=== PATIENT | female | born 1935 | race Caucasian/White ===

== ENCOUNTER 2020-07-18 09:05 | Emergency (ER) | payer MEDICARE, OTHER, SELFPAY ==
--- NOTE | 2020-07-18 | ECG_ITS ---
Test Reason : CP Blood Pressure : / mmHG Vent. Rate : 069 BPM Atrial Rate : 069 BPM P-R Int : 158 ms QRS Dur : 070 ms QT Int : 422 ms P-R-T Axes : 071 039 063 degrees QTc Int : 452 ms Normal sinus rhythm Normal ECG When compared with ECG of 24-NOV-2007 06:58, ST no longer depressed in Inferior leads Referred By: Generic ED Physician Electronically Signed By:Rambo Carver
[2020-07-18 09:11] VITALS: BP 181/80; PULSE 70; RESP 16; TEMP 36.5; O2SAT 98; BMI 25.0
--- NOTE | 2020-07-18 09:41 | XR_ITS ---
EXAMINATION: XR CHEST CLINICAL INFORMATION: Chest pain COMPARISON: June 07, 2006 TECHNIQUE: 2 views of the chest were obtained. FINDINGS: There is apical pleural thickening seen bilaterally. No acute parenchymal disease, pneumothorax, or pleural effusion. Heart normal size. No evidence of pulmonary edema. 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 XR/XR chest 2V IMPRESSION: No acute parenchymal disease.
--- NOTE | 2020-07-18 10:26 | ED.CHESTPAIN ---
HPI - Chest Pain General Chief Complaint: Chest Pain Stated Complaint: chest pain Time Seen by Provider: 07/18/20 09:32 Source: patient and EMS Mode of arrival: EMS Limitations: other (History of dementia) History of Present Illness HPI narrative: 84yoF c PMHx of Dementia who is at baseline per Nurse at [facility], HTN, breast cancer, hypothyroidism, anxiety, insomnia, arthritis, and osteopenia who is currently residing at assisted living facility stated to EMS that she was having burning sensation in her chest. Patient is a poor historian due to her history of dementia. When she arrived here in the ER she reports she does not have any chest pain and denies any other symptoms at this time and is very confused and requesting to leave. Related Data Allergies Allergy/AdvReac Type Severity Reaction Status Date / Time No Known Allergies Allergy Unverified 03/25/20 14:42 Review of Systems Review of Systems: Yes Unobtainable due to mental condition (Baseline dementia) [facility] Past Medical History Source: other Social History Social History Advance Directives: No Advance Directives Information Provided: No Physical Exam Vital Signs: Vital Signs: Last Vital Signs Temp 97.7 F 07/18/20 09:11 Pulse 70 07/18/20 09:11 Resp 16 07/18/20 09:11 BP 181/80 H 07/18/20 09:11 Pulse Ox 98 07/18/20 09:11 Body Mass Index 25.0 vital signs have been reviewed as normal and appeared to be correct. Blood pressure hypertensive. Heart rate normal. Respiration rate normal. Temperature normal. Oxygen saturation normal. Appearance: Alert. Confused due to history of dementia. No acute distress. Head: Normal external exam. Normocephalic. Atraumatic. Eyes: PERRLA. EOMI. Conjunctiva and sclera normal. Eyelids normal. ENT: Pharynx normal. Uvula midline. Moist mucous membranes. Neck: Normal inspection. Neck supple. FROM. No adenopathy. Thyroid Normal. No meningeal signs. No neck mass noted. CVS: Normal heart rate and rhythm. Heart sound normal. No murmurs noted. Pulses normal throughout. Respiratory: No respiratory distress. Painless inspiration. Breath sounds normal. No wheezes/rales/rhonchi noted. Chest nontender. No accessory muscle usage noted or decreased air movement noted. Abdomen: Soft and nontender. Bowel sounds normal in all 4 quadrants. No distention noted. No organomegaly noted. No visible injury noted. Back: No CVA tenderness. Full range of motion noted. Skin: Skin warm and dry. Normal skin color. Normal skin turgor. No rashes/lesions/lacerations noted. Extremities: + b/l pitting lower extremity edema. No calf tenderness. Extremities exhibit normal range of motion. Extremities nontender. Neuro: Confused due to history of dementia. No motor deficit. No sensory deficit. Reflexes normal. Course Course Course Narrative: 9:41am - 84yoF c PMHx of Dementia who is at baseline per Nurse at [facility], HTN, breast cancer, hypothyroidism, anxiety, insomnia, arthritis, and osteopenia who is currently residing at assisted living facility stated to EMS that she was having burning sensation in her chest. Patient at this time denies any complaints or concerns reports she never had any chest pain although due to her history of dementia so will still do a workup. Otherwise not in any acute distress. Attempted to call the [facility] assisted-living awaiting for the nurse to call back to get more information. - Concern for ACS - Plan: Labs, CXR, EKG then re-evaluate Reevaluation(s) Reevaluation #1: - all labs within normal limits including troponin and D-dimer. EKG normal sinus rhythm no acute ischemic changes noted. Chest x-ray within normal limits no acute processes noted. UA has +1 leukocytes although negative nitrates and patient denies any symptoms at this time therefore will not treat and await urine culture. Patient negative for COVID/flu/RSV. Will DC home with instructions to return if any new or worsening symptoms to follow with primary care provider. Patient and Nurse at [facility] understand and agree with plan. MDM - Chest Pain Medical Records Data Attestation: I reviewed the patient's medical records. Lab Data Attestation: I reviewed the patient's lab results. Result diagrams: 07/18/20 10:22 07/18/20 10:22 Labs: Lab Results 07/18/20 07/18/20 07/18/20 Range/Units 10:22 10:22 10:22 WBC 5.1 (4.8-10.8) X10*3/uL RBC 4.47 (4.20-5.50) X10*6/uL Hgb 13.7 (12.0-16.0) g/dl Hct 42.1 (37-47) % MCV 94.2 (80-98) fL MCH 30.6 (27.0-33.0) pg MCHC 32.5 (31.0-35.0) g/dl RDW 13.2 (11.0-16.0) % Plt Count 224 (160-400) X10*3/uL MPV 10.2 (9.4-12.3) fL Immature Gran % (Auto) 0.2 (0.0-0.4) % Neut % (Auto) 69.7 (45-73) % Lymph % (Auto) 15.0 L (20-40) % Cidra % (Auto) 10.0 (2-11) % Eos % (Auto) 4.3 H (0-4) % Baso % (Auto) 0.8 (0-2) % Lymph # (Auto) 0.8 L (1.2-4.9) X10*3/uL Cidra # (Auto) 0.5 (0.1-1.2) X10*3/uL Eos # (Auto) 0.2 (0.0-0.4) X10*3/uL Baso # (Auto) 0.0 (0.0-0.2) X10*3/uL Abs Immat Gran (auto) 0.01 (0.00-0.03) X10*3/uL Absolute Neuts (auto) 3.6 (2.0-8.3) X10*3/uL Absolute Nucleated RBC 0.000 (0.0-0.012) X10*3/uL Nucleated RBC % (auto) 0.0 (0.0-0.2) /100WBC PT 11.2 (10.8-13.0) SEC INR 0.9 (0.9-1.1) Sodium 142 (135-145) mmol/L Potassium 4.0 (3.3-5.1) mmol/l Chloride 105 (96-108) mmol/L Carbon Dioxide 28 (22-29) mmol/L Anion Gap 13 (12-20) BUN 20 H (9-16) mg/dL Creatinine 0.98 (0.5-1.4) mg/dL Estim Creat Clear Calc 39.8 Estimated GFR 54 Random Glucose 101 (60-115) mg/dL Calcium 8.9 (8.4-10.2) mg/dL Magnesium 2.4 (1.6-2.6) mg/dL Total Bilirubin 0.3 (0.0-1.0) mg/dL Direct Bilirubin 0.2 (0.0-0.5) mg/dL AST 15 (5-31) U/L ALT 15 (0-31) U/L Alkaline Phosphatase 72 (39-117) U/L Troponin I High Sens (<3.5-17.0) ng/L B-Natriuretic Peptide (<100) pg/mL Total Protein 6.7 (6.5-8.0) g/dL Albumin 4.2 (3.5-5.0) g/dL Urine Color Urine Appearance Urine pH (5.0-8.0) Ur Specific Driggs (1.005-1.025) Urine Protein (NEG-TRACE) MG/DL Urine Glucose (UA) (NEG) MG/DL Urine Ketones (NEG) MG/DL Urine Blood (NEG) Urine Nitrite (NEG) Ur Leukocyte Esterase (NEG) Urine RBC (0) /HPF Urine WBC (0-4) /HPF Ur Squamous Epith Cells /LPF Urine Bacteria /LPF Coronavirus (PCR) (Negative) Influenza Type A (PCR) (Negative) Influenza Type B (PCR) (Negative) RSV RNA Qual (PCR) (Negative) 07/18/20 07/18/20 07/18/20 Range/Units 10:22 10:22 11:06 WBC (4.8-10.8) X10*3/uL RBC (4.20-5.50) X10*6/uL Hgb (12.0-16.0) g/dl Hct (37-47) % MCV (80-98) fL MCH (27.0-33.0) pg MCHC (31.0-35.0) g/dl RDW (11.0-16.0) % Plt Count (160-400) X10*3/uL MPV (9.4-12.3) fL Immature Gran % (Auto) (0.0-0.4) % Neut % (Auto) (45-73) % Lymph % (Auto) (20-40) % Cidra % (Auto) (2-11) % Eos % (Auto) (0-4) % Baso % (Auto) (0-2) % Lymph # (Auto) (1.2-4.9) X10*3/uL [place] # (Auto) (0.1-1.2) X10*3/uL Eos # (Auto) (0.0-0.4) X10*3/uL Baso # (Auto) (0.0-0.2) X10*3/uL Abs Immat Gran (auto) (0.00-0.03) X10*3/uL Absolute Neuts (auto) (2.0-8.3) X10*3/uL Absolute Nucleated RBC (0.0-0.012) X10*3/uL Nucleated RBC % (auto) (0.0-0.2) /100WBC PT (10.8-13.0) SEC INR (0.9-1.1) Sodium (135-145) mmol/L Potassium (3.3-5.1) mmol/l Chloride (96-108) mmol/L Carbon Dioxide (22-29) mmol/L Anion Gap (12-20) BUN (9-16) mg/dL Creatinine (0.5-1.4) mg/dL Estim Creat Clear Calc Estimated GFR Random Glucose (60-115) mg/dL Calcium (8.4-10.2) mg/dL Magnesium (1.6-2.6) mg/dL Total Bilirubin (0.0-1.0) mg/dL Direct Bilirubin (0.0-0.5) mg/dL AST (5-31) U/L ALT (0-31) U/L Alkaline Phosphatase (39-117) U/L Troponin I High Sens < 3.5 (<3.5-17.0) ng/L B-Natriuretic Peptide 51 (<100) pg/mL Total Protein (6.5-8.0) g/dL Albumin (3.5-5.0) g/dL Urine Color YELLOW Urine Appearance CLEAR Urine pH 5.5 (5.0-8.0) Ur Specific Driggs 1.015 (1.005-1.025) Urine Protein NEG (NEG-TRACE) MG/DL Urine Glucose (UA) NEG (NEG) MG/DL Urine Ketones NEG (NEG) MG/DL Urine Blood NEG (NEG) Urine Nitrite NEG (NEG) Ur Leukocyte Esterase 1+ H (NEG) Urine RBC 0-2 (0) /HPF Urine WBC 5-9 H (0-4) /HPF Ur Squamous Epith Cells TRACE /LPF Urine Bacteria NONE /LPF Coronavirus (PCR) NEGATIVE (Negative) Influenza Type A (PCR) NEGATIVE (Negative) Influenza Type B (PCR) NEGATIVE (Negative) RSV RNA Qual (PCR) NEGATIVE (Negative) Imaging Data Chest x-ray: Attestation: I personally reviewed and interpreted this imaging study as follows: Radiologist's impression: FINDINGS: There is apical pleural thickening seen bilaterally. No acute parenchymal disease, pneumothorax, or pleural effusion. Heart normal size. No evidence of pulmonary edema. 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 XR/XR chest 2V IMPRESSION: No acute parenchymal disease. ECG Data ECG #1: Attestation: I personally reviewed and interpreted this ECG as follows: ECG interpretation date: 07/18/20 ECG interpretation time: 09:22 Interpretation: Normal sinus rhythm with a ventricular rate of 69 with normal ND interval normal QRS duration normal QT/QTC interval. No acute ischemic changes noted. Similar when compared to prior EKG on 11/24/2007. Discharge Plan Discharge Clinical Impression: Atypical chest pain Patient Disposition: Home, Self-Care Instructions: Chest Pain (ED) Referrals: Physician,Unknown [Primary Care Provider] - 2 days (your pcp) Print Language: Togolese
[2020-07-18 10:29] LABS: Basophils Percent Auto 0.8 % (0-2); Eosinophils Absolute Auto 0.2 X10*3/uL (0.0-0.4); Eosinophils Percent Auto 4.3 % (0-4); Hematocrit 42.1 % (37-47); Hemoglobin 13.7 g/dl (12.0-16.0); Imm Gran Abs Auto 0.01 X10*3/uL (0.00-0.03); Imm Gran Pct Auto 0.2 % (0.0-0.4); Lymphocytes Absolute Auto 0.8 X10*3/uL (1.2-4.9); MANUAL DIFF FLAG NO; Mean Corpuscular HGB Conc 32.5 g/dl (31.0-35.0); Mean Corpuscular Hemoglobin 30.6 pg (27.0-33.0); Mean Corpuscular Volume 94.2 fL (80-98); Mean Platelet Volume 10.2 fL (9.4-12.3); Monocytes Absolute Auto 0.5 X10*3/uL (0.1-1.2); Neutrophils Absolute Auto 3.6 X10*3/uL (2.0-8.3); Neutrophils Percent Auto 69.7 % (45-73); Platelet Count 224 X10*3/uL (160-400); Red Blood Count 4.47 X10*6/uL (4.20-5.50); Red Cell Distribution Width 13.2 % (11.0-16.0); White Blood Count 5.1 X10*3/uL (4.8-10.8)
[2020-07-18 10:34] LABS: INTERNATIONAL NORM RATIO 0.9 (0.9-1.1); Prothrombin Time 11.2 SEC (10.8-13.0)
[2020-07-18 10:57] LABS: Alanine Aminotransferase 15 U/L (0-31); Albumin Level 4.2 g/dL (3.5-5.0); Alkaline Phosphatase 72 U/L (39-117); Anion Gap 13 (12-20); Aspartate Amino Transferase 15 U/L (5-31); Bilirubin Direct 0.2 mg/dL (0.0-0.5); Bilirubin Total 0.3 mg/dL (0.0-1.0); Blood Urea Nitrogen 20 mg/dL (9-16); Calcium 8.9 mg/dL (8.4-10.2); Carbon Dioxide 28 mmol/L (22-29); Chloride 105 mmol/L (96-108); Creatinine Clr Calc Pharmacy 39.8; Estimated Glomerular Filt Rate 54; Glucose Random 101 mg/dL (60-115); Magnesium 2.4 mg/dL (1.6-2.6); Sodium 142 mmol/L (135-145); Total Protein 6.7 g/dL (6.5-8.0)
[2020-07-18 11:03] LABS: B Type Natriuretic Peptide 51 pg/mL (<100); Troponin-I High Sensitivity < 3.5 ng/L (<3.5-17.0)
[2020-07-18 11:08] LABS: Influenza A PCR NEGATIVE (Negative); Influenza B PCR NEGATIVE (Negative); Resp Syncy Virus RNA Qual PCR NEGATIVE (Negative); SARS COV2 PCR INHOUSE NEGATIVE (Negative)
--- NOTE | 2020-07-18 11:13 | PC.NURSE ---
pt now frequently trying to get out of bed, requesting to leave. pt redirected back to bed. needing frequent redirection. ambulated to bathroom w standby assist. ua spec collected and sent.
[2020-07-18 11:15] LABS: Glucose Urine UA NEG (NEG); Leukocyte Esterase Urine 1+ (NEG); Nitrite Urine NEG (NEG); PH 5.5 (5.0-8.0); Specific Gravity - Urine 1.015 (1.005-1.025); Urine Blood NEG (NEG); Urine Ketones NEG (NEG); Urine Protein NEG (NEG-TRACE)
[2020-07-18 11:18] LABS: Appearance Urine CLEAR; Color Urine YELLOW
[2020-07-18 11:30] LABS: RBC Urine 0-2 /HPF (0); Squamous Epithelial Cell Urine TRACE /LPF
== END 2020-07-18 12:01 | disposition home or self-care (01) ==
PROVIDERS: Physician Assistant Medical; Emergency Provider Emergency Medicine
DX: R07.89 Other chest pain (principal); F03.90 Unspecified dementia, unspecified severity, without behavioral disturbance, psychotic disturbance, mood disturbance, and anxiety; I10 Essential (primary) hypertension; Z20.822 Contact with and (suspected) exposure to COVID-19
CPT/HCPCS: 0241U; 36415; 71046; 80048; 80076; 81001; 83735; 83880; 84484; 85025; 85610; 87086; 93005; 99283; 99284

== ENCOUNTER 2021-01-01 12:33 | Emergency (ER) | payer MEDICARE, OTHER, SELFPAY ==
--- NOTE | ~2021-01-01 | XR_ITS ---
EXAMINATION: X-RAY OF THE CHEST AND RIGHT ELBOW. CLINICAL INFORMATION: 85-year-old female patient with history of falling. COMPARISON: Chest x-ray on 07/18/2020. TECHNIQUE: AP semierect view of the chest at 1:15 PM. 3 views of the right elbow. FINDINGS: Chest: The heart is normal in size. Lungs are clear. Heavy calcification of the costal cartilages interferes with evaluation of the lower lobes particularly the left side. No pneumothorax or hemothorax is seen. No visible fractures are identified. Right elbow: Negative for fracture, dislocation, or joint effusion. XR/XR elbow RT 2V IMPRESSION: Exams negative for fracture.
--- NOTE | ~2021-01-01 | CT_ITS ---
EXAMINATION: CT OF THE HEAD WITHOUT CONTRAST CT OF THE CERVICAL SPINE WITHOUT CONTRAST CLINICAL INFORMATION: Unwitnessed fall. Dementia.. COMPARISON: CT scan of the head dated 06/19/2017.. TECHNIQUE: Contiguous axial imaging was performed from the skullbase to vertex without intravenous administration of contrast. Coronal reformations of the head were obtained. Contiguous axial imaging was then performed from the skull base down to the thoracic inlet. Coronal and sagittal reformations of the cervical spine were obtained. DLP: CT scan of the head: 794 mGy-cm. CT scan of the cervical spine: 458 mGy-cm. FINDINGS: CT scan of the head: There is no evidence of acute intracranial hemorrhage or territorial infarction. No abnormal mass-effect or midline shift is seen. Aldrich to white matter differentiation is well preserved. No extra-axial fluid collections are identified. The ventricles and sulci are enlarged, consistent with involutional changes. Mild periventricular and deep white matter low-attenuation is seen, consistent with ischemic small vessel disease. The osseous structures and soft tissues are normal. Small air-fluid level is seen in the left sphenoid sinus. The mastoid air cells and visualized portions of the remainder of the paranasal sinuses are well-aerated. CT scan of the cervical spine: Mild convex right cervical curvature. No evidence of acute fracture or dislocation. Craniocervical junction and atlantoaxial articulations are intact with mild degenerative spurring and cystic changes and sclerosis seen. There is also asymmetric prominent spurring, cystic changes and sclerosis seen at the articulation of the right lateral mass of C1 with C2 with adjacent small well-corticated bone fragments, most consistent with degenerative changes. Prevertebral soft tissues are normal in thickness. There is moderate degenerative disc disease seen throughout the cervical spine with disc space narrowing and vertebral endplate sclerosis and spurring and cystic change seen. Small posterior disc osteophyte complexes are seen projecting into the thecal sac at all levels from C3-4 down to C6-C7. Associated moderate facet arthropathy is noted throughout the cervical spine. The thyroid gland is either markedly atrophic or surgically absent. The included soft tissues of the neck are otherwise unremarkable. Dependent atelectasis is seen in the lung apices bilaterally. CT/CT cervical spine wo con IMPRESSION: CT scan of the head: No acute intracranial pathology. Chronic involutional changes and findings of ischemic small vessel disease seen. Left sphenoid sinus disease. CT scan of the cervical spine: No evidence of cervical spine fracture or acute malalignment. Diffuse degenerative changes seen throughout the cervical spine.
--- NOTE | ~2021-01-01 | XR_ITS ---
EXAMINATION: X-RAY OF THE CHEST AND RIGHT ELBOW. CLINICAL INFORMATION: 85-year-old female patient with history of falling. COMPARISON: Chest x-ray on 07/18/2020. TECHNIQUE: AP semierect view of the chest at 1:15 PM. 3 views of the right elbow. FINDINGS: Chest: The heart is normal in size. Lungs are clear. Heavy calcification of the costal cartilages interferes with evaluation of the lower lobes particularly the left side. No pneumothorax or hemothorax is seen. No visible fractures are identified. Right elbow: Negative for fracture, dislocation, or joint effusion. XR/XR chest 1V IMPRESSION: Exams negative for fracture.
[2021-01-01 12:36] VITALS: BP 147/93; PULSE 88; RESP 16; TEMP 36.7; O2SAT 94; BMI 34.2
--- NOTE | 2021-01-01 12:40 | ED.FALL ---
HPI - Fall General Chief Complaint: Fall Stated Complaint: fall, right arm pain Time Seen by Provider: 01/01/21 12:38 Source: EMS Mode of arrival: EMS Limitations: altered mental status History of Present Illness HPI Narrative: 85 yo female hc of HTN, hypothyroidism, dementia seen by staff to trip and fall landed on laminate floor striking head and R arm - no LOC, at baseline per EMS MD complaint: fall Onset (ago): minute(s) Fall from: standing Fall witnessed: yes, by living facility staff Place fall occurred: [facility] Loss of consciousness: none Prolonged down time: no Symptoms prior to fall: none Context: tripped/slipped Location of injury: head Location of injury - extremities: right: elbow Severity: mild Quality: dull Associated symptoms (after fall): denies Related Data Allergies Allergy/AdvReac Type Severity Reaction Status Date / Time No Known Allergies Allergy Unverified 03/25/20 14:42 Review of Systems Review of Systems: ROS unable to be obtained due to altered mental status [facility] Past Medical History Attestation statement: The following information was validated with the patient. Medical History Arthritis Breast cancer Dementia Hypertension Hypothyroidism Osteopenia Social History Social History Alcohol intake: never Patient Tobacco Use Status: Never used Tobacco Use of substances other than those prescribed or required for medical reasons: No Advance Directives: No Advance Directives Information Provided: Yes Physical Exam Vital Signs: Vital Signs: Last Vital Signs Temp 98.1 F 01/01/21 12:36 Pulse 83 01/01/21 13:48 Resp 14 01/01/21 13:48 BP 147/93 H 01/01/21 12:36 Pulse Ox 95 01/01/21 13:48 Body Mass Index 34.2 Appearance: Alert. Oriented X1. No acute distress. Eyes: Pupils equal, round and reactive to light. ENT: Pharynx normal. small contusion on R side of scalp Neck: Normal inspection. Neck supple. patient could not tolerate a cervical collar CVS: Normal heart rate and rhythm. Pulses normal. Respiratory: No respiratory distress. Breath sounds normal. Abdomen: Soft and non-tender. Skin: Skin warm and dry. Normal skin color. Normal skin turgor. Extremities: No lower extremity edema. No calf ttp R elbow small contusion full range of motion Neuro: Oriented X . No motor deficit. No sensory deficit. Course Course Course Narrative: no acute injuries stable for DC MDM - Fall MDM Narrative Medical decision making narrative: 85 yo female hc of HTN, hypothyroidism, dementia seen by staff to trip and fall landed on laminate floor striking head and R arm - no LOC, at baseline per EMS at this time will need CT head/neck given fall, xray of chest and elbow, staff state this was mechanical and witnessed, dispo per results and findings. Discharge Plan Discharge Clinical Impression: Fall Qualifiers: Encounter type: initial encounter Qualified Code(s): W19.XXXA - Unspecified fall, initial encounter Contusion Qualifiers: Encounter type: initial encounter Contusion area: head Contusion of head detail: scalp Qualified Code(s): S00.03XA - Contusion of scalp, initial encounter Head injury Qualifiers: Encounter type: initial encounter Qualified Code(s): S09.90XA - Unspecified injury of head, initial encounter Patient Disposition: Xfer SNF Instructions: Head Injury (ED), Contusion in Adults (ED) Additional Instructions: return to ED for any worsening symptoms or concerns xray of chest and elbow No acute intracranial pathology. Chronic involutional changes and findings of ischemic small vessel disease seen. Left sphenoid sinus disease. CT scan of the cervical spine: No evidence of cervical spine fracture or acute malalignment. Diffuse degenerative changes seen throughout the cervical spine.
--- NOTE | 2021-01-01 12:45 | PC.NURSE ---
Patient from the [facility] S/P fall with reported complaint of right arm pain and right face pain. Patient has dementia at baseline, imaging ordered per provider but patient denies any pain at this time and has full range of motion of his right arm.
[2021-01-01 13:48] VITALS: PULSE 83; RESP 14; O2SAT 95
== END 2021-01-01 14:32 | disposition skilled nursing facility (03) ==
PROVIDERS: Emergency Provider Emergency Medicine; PCP Registered Nurse
DX: S00.03XA Contusion of scalp, initial encounter (principal); I10 Essential (primary) hypertension; F03.90 Unspecified dementia, unspecified severity, without behavioral disturbance, psychotic disturbance, mood disturbance, and anxiety; W01.0XXA Fall on same level from slipping, tripping and stumbling without subsequent striking against object, initial encounter; Y93.9 Activity, unspecified; Y92.129 Unspecified place in nursing home as the place of occurrence of the external cause; Y99.9 Unspecified external cause status
CPT/HCPCS: 70450; 71045; 72125; 73070; 99284; 99285

== ENCOUNTER 2021-01-02 03:08 | Emergency (ER) | payer MEDICARE, OTHER, SELFPAY ==
--- NOTE | ~2021-01-02 | CT_ITS ---
EXAMINATION: HEAD CT WITHOUT CONTRAST CERVICAL SPINE CT WITHOUT CONTRAST CLINICAL INFORMATION: Fall COMPARISON: 01/01/2021 TECHNIQUE: Contiguous axial imaging of the head was performed without the administration of IV contrast. Axial multidetector volumetric images were also performed through the cervical spine without intravenous contrast. Multiplanar reconstructed images in coronal and sagittal orientations were submitted. This CT examination was performed using dose optimization techniques as appropriate, variously including the following: *Automated exposure control *Adjustment of mA and/or kV according to patient size (this includes techniques or standardized protocols for targeted exams where dose is matched to indication/reason for exam; i.e. extremities or head) *Use of iterative reconstruction technique DOSE: 1114 mGy-cm FINDINGS: HEAD: There is no evidence of acute intracranial hemorrhage or territorial infarction. No abnormal mass-effect or midline shift. No extra-axial fluid collections. Aldrich to white matter differentiation is well preserved. Moderate enlargement of the ventricles, sulci, and extra-axial CSF spaces is indicative of parenchymal volume loss. A few subtle foci of hypoattenuation in the subcortical and periventricular white matter are most consistent with chronic microangiopathic changes. Calcific atherosclerosis is present within the cavernous and supraclinoid segments of the internal carotid arteries. The soft tissues and osseous structures are normal. Small air-fluid levels again seen in the left sphenoid sinus. Paranasal sinuses and mastoid air cells are otherwise clear. CERVICAL SPINE: Vertebral body heights are normal. No fractures of the vertebral bodies or posterior elements. No acute malalignment. Minimal anterolisthesis of C7 on T1 and T1 and T2 (2 mm). There is solid osseous bridging of the facet joints at C7-T1 bilaterally and on the right at C2-C3. Severe degenerative joint space narrowing, s cortical irregularity, and marginal osteophytes are evident at the articulation between the lateral masses of C1 and C2. More mild degenerative changes are present at the remainder of the atlantodental and atlantooccipital articulations. There is moderate multilevel degenerative disc disease in cervical spine diffusely, most notably from C3-C4 through C6-7. Marked multilevel facet arthropathy is also noted on the left at most levels. Posterior disc osteophytic protrusions at C4-C5, C5-C6, and C5-C6 likely is mild central canal narrowing, indenting the ventral thecal sac. No significant paravertebral soft tissue swelling. Atherosclerotic calcifications are present in the carotid arteries. Imaged portions of the lung apices are clear. CT/CT cervical spine wo con IMPRESSION: 1. No acute intracranial pathology. The left sphenoid sinus disease, unchanged. Chronic parenchymal volume loss and cerebral microangiopathic white matter disease. 2. No acute fracture or acute malalignment in the cervical spine. Degenerative spondylosis in the cervical spine with fusion of the facet joints at C2-C3 and C7-T1.
[2021-01-02 03:16] VITALS: BP 145/91; BP 150/100; PULSE 95; PULSE 96; RESP 20; O2SAT 97; BMI 27.3
--- NOTE | 2021-01-02 03:32 | ED_ITS ---
HPI - Fall General Chief Complaint: Fall Stated Complaint: fall Time Seen by Provider: 01/02/21 03:26 Source: EMS Mode of arrival: EMS Limitations: altered mental status History of Present Illness HPI Narrative: Patient comes emergency room, brought in by EMS. Patient presents from a dementia unit, patient is confused at baseline, patient is therefore a poor historian. Per staff, patient had a mechanical fall, hit the back of her head on a dresser when she was standing up to walk up to the bathroom. Per staff, they responded immediately when they heard a noise, there was no loss of consciousness, they noticed that the patient has a small laceration to the scalp. Patient denies any pain. Related Data Allergies Allergy/AdvReac Type Severity Reaction Status Date / Time No Known Allergies Allergy Unverified 03/25/20 14:42 Review of Systems Review of Systems: In accurate history due to patient's advanced dementia Yes Other [facility] Past Medical History Medical History Arthritis Breast cancer Dementia Hypertension Hypothyroidism Osteopenia Social History Social History Alcohol intake: never Patient Tobacco Use Status: Never used Tobacco Advance Directives: No Physical Exam Vital Signs: Vital Signs: Last Vital Signs Pulse 95 01/02/21 03:16 Resp 20 01/02/21 03:16 BP 145/91 H 01/02/21 03:16 Pulse Ox 97 01/02/21 03:16 Body Mass Index 27.3 Appearance: Alert. Oriented X3. No acute distress. Eyes: Pupils equal, round and reactive to light. ENT: Pharynx normal. Neck: Normal inspection. Neck supple. No lymph nodes noted. No crepitus CVS: Normal heart rate and rhythm. Pulses normal. Normal S1 and S2 Respiratory: No respiratory distress. Breath sounds normal. No Wheezing. No rales Abdomen: Soft and nontender. No rigidity. No distention. good BS x4 Skin: Skin warm and dry. patient has a 1 cm laceration to the back of the darling discard, minimal bleed. Extremities: No lower extremity edema.No Lacerations. No Rash Neuro: Oriented X 3. No motor deficit. No sensory deficit. Moving all extermities. No slurred speech. Course Course Course Narrative: I discussed with the ct scan with the pt Patient received 2 xochilt Procedures Laceration Laceration 1: Site: scalp Size (cm): 1 Description: linear Depth: simple, single layer Number of sutures: 2 Technique: other (xochilt) MDM - Fall Imaging Data CT scan - abdomen: Radiologist's impression: FINDINGS: HEAD: There is no evidence of acute intracranial hemorrhage or territorial infarction. No abnormal mass-effect or midline shift. No extra-axial fluid collections. Aldrich to white matter differentiation is well preserved. Moderate enlargement of the ventricles, sulci, and extra-axial CSF spaces is indicative of parenchymal volume loss. A few subtle foci of hypoattenuation in the subcortical and periventricular white matter are most consistent with chronic microangiopathic changes. Calcific atherosclerosis is present within the cavernous and supraclinoid segments of the internal carotid arteries. The soft tissues and osseous structures are normal. Small air-fluid levels again seen in the left sphenoid sinus. Paranasal sinuses and mastoid air cells are otherwise clear. CERVICAL SPINE: Vertebral body heights are normal. No fractures of the vertebral bodies or posterior elements. No acute malalignment. Minimal anterolisthesis of C7 on T1 and T1 and T2 (2 mm). There is solid osseous bridging of the facet joints at C7-T1 bilaterally and on the right at C2-C3. Severe degenerative joint space narrowing, s cortical irregularity, and marginal osteophytes are evident at the articulation between the lateral masses of C1 and C2. More mild degenerative changes are present at the remainder of the atlantodental and atlantooccipital articulations. There is moderate multilevel degenerative disc disease in cervical spine diffusely, most notably from C3-C4 through C6-7. Marked multilevel facet arthropathy is also noted on the left at most levels. Posterior disc osteophytic protrusions at C4-C5, C5-C6, and C5-C6 likely is mild central canal narrowing, indenting the ventral thecal sac. No significant paravertebral soft tissue swelling. Atherosclerotic calcifications are present in the carotid arteries. Imaged portions of the lung apices are clear. CT/CT cervical spine wo con IMPRESSION: 1. No acute intracranial pathology. The left sphenoid sinus disease, unchanged. Chronic parenchymal volume loss and cerebral microangiopathic white matter disease. 2. No acute fracture or acute malalignment in the cervical spine. Degenerative spondylosis in the cervical spine with fusion of the facet joints at C2-C3 and C7-T1. Discharge Plan Discharge Clinical Impression: Laceration of scalp Qualifiers: Encounter type: initial encounter Qualified Code(s): S01.01XA - Laceration without foreign body of scalp, initial encounter Patient Disposition: Home, Self-Care Instructions: Head Laceration (ED) Additional Instructions: The xochilt need to be removed in 7 to 10 days. Please follow-up with your primary care physician tomorrow. If you have any worsening or new symptoms, please return to the emergency room or call 911
--- NOTE | 2021-01-02 04:49 | PC.NURSE ---
Ambulance called at [id number] for transport back home.
== END 2021-01-02 05:25 | disposition home or self-care (01) ==
PROVIDERS: Emergency Provider Emergency Medicine
DX: S01.01XA Laceration without foreign body of scalp, initial encounter (principal); I10 Essential (primary) hypertension; F03.90 Unspecified dementia, unspecified severity, without behavioral disturbance, psychotic disturbance, mood disturbance, and anxiety; W18.30XA Fall on same level, unspecified, initial encounter; Y93.9 Activity, unspecified; Y92.9 Unspecified place or not applicable; Y99.9 Unspecified external cause status
CPT/HCPCS: 12001; 70450; 72125; 99283; 99284

== ENCOUNTER 2021-03-03 07:51 | Emergency (ER) | payer MEDICARE, OTHER, SELFPAY ==
--- NOTE | ~2021-03-03 | CT_ITS ---
EXAMINATION: CT HEAD/BRAIN WITHOUT CONTRAST CT CERVICAL SPINE WITHOUT CONTRAST CLINICAL INFORMATION: Fall. COMPARISON: CT brain 01/01/2021 TECHNIQUE: 5 mm thin axial and reformatted 2 mm thin sagittal and coronal images of the brain were obtained without contrast. Axial 3 mm thin and reformatted 2 mm thin sagittal and coronal images of the cervical spine were obtained. DLP: 1193 mGy-cm FINDINGS: BRAIN: There is no acute intra-axial, extra-axial bleed, masses or midline shift. There is no acute infarct in evolution. There is no edema. The lateral ventricles are symmetrical in size and configuration with moderate enlargement. The reddy to white matter differentiation is maintained normal. Bone windows reveal no calvarial abnormality. Bilateral paranasal sinuses and mastoid air cells are well aerated. There is no scalp soft tissue abnormality. CERVICAL SPINE: There is normal cervical lordosis. The vertebral heights and alignment are normal. There is loss of disc height from the C2-C3 through the C6-C7 disc levels with mild posterior spondylosis. No visible acute fracture, dislocation or lytic process is seen. The craniovertebral junction is normal. The neural foramina are patent. There is moderate right C2-C3 facet joint arthropathy and hypertrophy. There is bilateral loss of joint space with periarticular spurring of the TM joints. The prevertebral and paravertebral soft tissues are normal. There is bilateral apical pleural thickening and parenchymal scarring. CT/CT cervical spine wo con IMPRESSION: No acute intracranial process seen. There is age-related cerebral volume loss with chronic small vessel microangiopathy. Mild degenerative disc changes throughout the cervical spine with spondylosis. No visible acute fracture, dislocation or subluxation is seen.
--- NOTE | ~2021-03-03 | XR_ITS ---
EXAMINATION: XR CHEST CLINICAL INFORMATION: Fall COMPARISON: January 01, 2021 and July 18, 2020 TECHNIQUE: AP portable view of the chest was obtained. FINDINGS: No significant abnormality is noted involving the heart, lungs, mediastinum, bony thorax or soft tissues. XR/XR chest 1V IMPRESSION: No acute disease.
--- NOTE | 2021-03-03 07:53 | ED_ITS ---
HPI - Fall General Chief Complaint: Fall Stated Complaint: fall Time Seen by Provider: 03/03/21 07:53 Source: patient and EMS Mode of arrival: EMS Limitations: other (dementia) History of Present Illness MD complaint: fall Onset (ago): unknown Fall from: standing Fall witnessed: no Place fall occurred: home Loss of consciousness: unsure Prolonged down time: unclear Symptoms prior to fall: none Context: history of frequent falls Severity: moderate Associated symptoms (after fall): denies Related Data Home Medications Medication Instructions Recorded Confirmed calcium carbonate 500 mg (1,250 1 tab PO DAILY 03/03/21 03/03/21 mg)-vitamin D3 400 unit tablet (Calcium 500 + D) levothyroxine 100 mcg tablet 100 mcg PO SUTH@0603/03/21 03/03/21 levothyroxine 112 mcg tablet 112 mcg PO MOTUWEFRSA@0603/03/21 03/03/21 quetiapine 50 mg tablet 50 mg PO BEDTIME 03/03/21 03/03/21 sertraline 50 mg tablet 50 tab PO DAILY 03/03/21 03/03/21 Allergies Allergy/AdvReac Type Severity Reaction Status Date / Time No Known Allergies Allergy Unverified 03/25/20 14:42 Review of Systems Review of Systems: ROS unable to be obtained due to altered mental status PMFSH Past Medical History Attestation statement: The following information was validated with the patient. Medical History Arthritis Breast cancer Dementia Hypertension Hypothyroidism Osteopenia Social History Social History Alcohol intake: never Patient Tobacco Use Status: Never used Tobacco Use of substances other than those prescribed or required for medical reasons: No Advance Directives: No Advance Directives Information Provided: No Physical Exam Vital Signs: Vital Signs: Last Vital Signs Temp 98.9 F 03/03/21 07:57 Pulse 96 03/03/21 07:57 Resp 16 03/03/21 07:57 BP 181/92 H 03/03/21 07:57 Pulse Ox 96 03/03/21 07:57 Body Mass Index 33.7 Appearance: Alert. Oriented X1. No acute distress. Eyes: Pupils equal, round and reactive to light. ENT: Pharynx normal. Neck: Normal inspection. Neck supple. CVS: Normal heart rate and rhythm. Pulses normal. Respiratory: No respiratory distress. Breath sounds normal. Abdomen: Soft and non-tender. Back: no signs of trauma, no midline ttp Skin: Skin warm and dry. Normal skin color. Normal skin turgor. Extremities: No lower extremity edema. No calf ttp No pain with ROM or axial loading of extremities, full ROM of bilateral hips Neuro: Oriented X 1. No motor deficit. No sensory deficit. Course Course Course Narrative: negative workup, the daughter does not want to stay for urine sample - stable for DC, aware I cannot rule out UTI as a cause MDM - Fall MDM Narrative Medical decision making narrative: 85 yo female with dementia from ?assisted living facility, HTN, hypothyroidism, breast cancer no AC therapy at this time r eported fall again unknown cause - will need labs, EKG, CT head/cervical spine I do not appreciate any trauma. She states she wanted to lay on the floor. Dispo per results and findings. Lab Data Result diagrams: 03/03/21 08:18 03/03/21 08:14 Labs: Lab Results 03/03/21 03/03/21 03/03/21 Range/Units 08:14 08:14 08:14 WBC (4.8-10.8) X10*3/uL RBC (4.20-5.50) X10*6/uL Hgb (12.0-16.0) g/dl Hct (37-47) % MCV (80-98) fL MCH (27.0-33.0) pg MCHC (31.0-35.0) g/dl RDW (11.0-16.0) % Plt Count (160-400) X10*3/uL MPV (9.4-12.3) fL Immature Gran % (Auto) (0.0-0.4) % Neut % (Auto) (45-73) % Lymph % (Auto) (20-40) % [place] % (Auto) (2-11) % Eos % (Auto) (0-4) % Baso % (Auto) (0-2) % Lymph # (Auto) (1.2-4.9) X10*3/uL [place] # (Auto) (0.1-1.2) X10*3/uL Eos # (Auto) (0.0-0.4) X10*3/uL Baso # (Auto) (0.0-0.2) X10*3/uL Abs Immat Gran (auto) (0.00-0.03) X10*3/uL Absolute Neuts (auto) (2.0-8.3) X10*3/uL Absolute Nucleated RBC (0.0-0.012) X10*3/uL Nucleated RBC % (auto) (0.0-0.2) /100WBC PT 11.4 (9.9-13.0) SEC INR 1.0 (0.9-1.1) APTT 32.3 (24.1-38.0) SEC Sodium 141 (135-145) mmol/L Potassium 3.8 (3.3-5.1) mmol/L Chloride 106 (96-108) mmol/L Carbon Dioxide 25 (22-29) mmol/L Anion Gap 14 (12-20) BUN 18 H (9-16) mg/dL Creatinine 1.04 (0.5-1.4) mg/dL Estim Creat Clear Calc 45.9 Estimated GFR 51 Random Glucose 106 (60-115) mg/dL Calcium 9.0 (8.4-10.2) mg/dL Magnesium 2.3 (1.6-2.6) mg/dL Total Bilirubin 0.7 (0.0-1.0) mg/dL Direct Bilirubin 0.2 (0.0-0.5) mg/dL AST 21 (5-31) U/L ALT 16 (0-31) U/L Alkaline Phosphatase 77 (39-117) U/L Total Creatine Kinase 414 H (26-140) U/L Troponin I High Sens 4.9 (<3.5-17.0) ng/L Total Protein 6.5 (6.5-8.0) g/dL Albumin 4.1 (3.5-5.0) g/dL Lipase 17 (8-78) U/L COVID-19 ([facility]) (Negative) COVID-19 Clin Com 03/03/21 03/03/21 03/03/21 Range/Units 08:14 08:18 10:31 WBC 11.1 H (4.8-10.8) X10*3/uL RBC 4.22 (4.20-5.50) X10*6/uL Hgb 13.1 (12.0-16.0) g/dl Hct 39.1 (37-47) % MCV 92.7 (80-98) fL MCH 31.0 (27.0-33.0) pg MCHC 33.5 (31.0-35.0) g/dl RDW 13.1 (11.0-16.0) % Plt Count 189 (160-400) X10*3/uL MPV 10.2 (9.4-12.3) fL Immature Gran % (Auto) 0.2 (0.0-0.4) % Neut % (Auto) 84.4 H (45-73) % Lymph % (Auto) 5.5 L (20-40) % [place] % (Auto) 8.2 (2-11) % Eos % (Auto) 1.2 (0-4) % Baso % (Auto) 0.5 (0-2) % Lymph # (Auto) 0.6 L (1.2-4.9) X10*3/uL [place] # (Auto) 0.9 (0.1-1.2) X10*3/uL Eos # (Auto) 0.1 (0.0-0.4) X10*3/uL Baso # (Auto) 0.1 (0.0-0.2) X10*3/uL Abs Immat Gran (auto) 0.02 (0.00-0.03) X10*3/uL Absolute Neuts (auto) 9.4 H (2.0-8.3) X10*3/uL Absolute Nucleated RBC 0.000 (0.0-0.012) X10*3/uL Nucleated RBC % (auto) 0.0 (0.0-0.2) /100WBC PT (9.9-13.0) SEC INR (0.9-1.1) APTT (24.1-38.0) SEC Sodium (135-145) mmol/L Potassium (3.3-5.1) mmol/L Chloride (96-108) mmol/L Carbon Dioxide (22-29) mmol/L Anion Gap (12-20) BUN (9-16) mg/dL Creatinine (0.5-1.4) mg/dL Estim Creat Clear Calc Estimated GFR Random Glucose (60-115) mg/dL Calcium (8.4-10.2) mg/dL Magnesium (1.6-2.6) mg/dL Total Bilirubin (0.0-1.0) mg/dL Direct Bilirubin (0.0-0.5) mg/dL AST (5-31) U/L ALT (0-31) U/L Alkaline Phosphatase (39-117) U/L Total Creatine Kinase (26-140) U/L Troponin I High Sens 5.4 (<3.5-17.0) ng/L Total Protein (6.5-8.0) g/dL Albumin (3.5-5.0) g/dL Lipase (8-78) U/L COVID-19 ([facility]) Negative (Negative) COVID-19 Clin Com See Note ECG Data Attestation: I personally reviewed and interpreted this ECG as follows: ECG interpretation date: 03/03/21 ECG interpretation time: 08:05 Interpretation: Rate: 94 Rhythm: NSR [place]: normal Normal P waves. Normal ADAM. Normal QRS complex. ST T wave : no JERMAINE, nonspecific qTC: normal prior studies: no acute ischemia The study has been interpreted contemporaneously by me. . Discharge Plan Discharge Clinical Impression: Fall Qualifiers: Encounter type: initial encounter Qualified Code(s): W19.XXXA - Unspecified fall, initial encounter Dementia Qualifiers: Dementia type: Alzheimer's Alzheimer's disease onset: late-onset Dementia behav ioral disturbance: without behavioral disturbance Qualified Code(s): G30.1 - Alzheimer's disease with late onset Patient Disposition: Home, Self-Care Instructions: Dementia (ED), Fall Prevention for Older Adults (ED) Additional Instructions: return to ED for any worsening symptoms or concerns urine sample declined in ED Prescriptions: No Action levothyroxine 100 mcg tablet 100 mcg PO SUTH@0600 RF: 0 sertraline 50 mg tablet 50 tab PO DAILY RF: 0 levothyroxine 112 mcg tablet 112 mcg PO MOTUWEFRSA@0600 RF: 0 quetiapine 50 mg tablet 50 mg PO BEDTIME RF: 0 calcium carbonate-vitamin D3 [Calcium 500 + D] 500 mg(1,250mg) -400 unit Tablet 1 tab PO DAILY RF: 0
--- NOTE | 2021-03-03 07:54 | ECG_ITS ---
Test Reason : FALL Blood Pressure : / mmHG Vent. Rate : 094 BPM Atrial Rate : 094 BPM P-R Int : 156 ms QRS Dur : 078 ms QT Int : 384 ms P-R-T Axes : 072 039 023 degrees QTc Int : 480 ms Normal sinus rhythm Nonspecific ST and T wave abnormality Abnormal ECG When compared with ECG of 18-JUL-2020 09:22, Nonspecific ST and T wave abnormality is now Present Referred By: Gabriela Ivy Electronically Signed By:SOFIA BREWER
[2021-03-03 07:57] VITALS: BP 181/92; PULSE 96; RESP 16; TEMP 37.2; O2SAT 96; BMI 33.7
[2021-03-03 08:23] LABS: MANUAL DIFF FLAG NO
[2021-03-03 08:26] LABS: Basophils Absolute Auto 0.1 X10*3/uL (0.0-0.2); Basophils Percent Auto 0.5 % (0-2); Eosinophils Absolute Auto 0.1 X10*3/uL (0.0-0.4); Eosinophils Percent Auto 1.2 % (0-4); Hematocrit 39.1 % (37-47); Hemoglobin 13.1 g/dl (12.0-16.0); Imm Gran Abs Auto 0.02 X10*3/uL (0.00-0.03); Imm Gran Pct Auto 0.2 % (0.0-0.4); Lymphocytes Absolute Auto 0.6 X10*3/uL (1.2-4.9); Lymphocytes Percent Auto 5.5 % (20-40); Mean Corpuscular HGB Conc 33.5 g/dl (31.0-35.0); Mean Corpuscular Volume 92.7 fL (80-98); Mean Platelet Volume 10.2 fL (9.4-12.3); Monocytes Absolute Auto 0.9 X10*3/uL (0.1-1.2); Monocytes Percent Auto 8.2 % (2-11); Neutrophils Absolute Auto 9.4 X10*3/uL (2.0-8.3); Neutrophils Percent Auto 84.4 % (45-73); Platelet Count 189 X10*3/uL (160-400); Red Blood Count 4.22 X10*6/uL (4.20-5.50); Red Cell Distribution Width 13.1 % (11.0-16.0); White Blood Count 11.1 X10*3/uL (4.8-10.8)
[2021-03-03 08:39] LABS: Prothrombin Time 11.4 SEC (9.9-13.0)
[2021-03-03 08:41] LABS: COVID-19 Test Negative (Negative); IDNOW Serial# 9DD0AD1C; Partial Thromboplastin Time 32.3 SEC (24.1-38.0)
[2021-03-03 09:06] LABS: Alanine Aminotransferase 16 U/L (0-31); Albumin Level 4.1 g/dL (3.5-5.0); Alkaline Phosphatase 77 U/L (39-117); Anion Gap 14 (12-20); Aspartate Amino Transferase 21 U/L (5-31); Bilirubin Direct 0.2 mg/dL (0.0-0.5); Bilirubin Total 0.7 mg/dL (0.0-1.0); Blood Urea Nitrogen 18 mg/dL (9-16); Carbon Dioxide 25 mmol/L (22-29); Chloride 106 mmol/L (96-108); Creatinine Clr Calc Pharmacy 45.9; Estimated Glomerular Filt Rate 51; Glucose Random 106 mg/dL (60-115); Lipase 17 U/L (8-78); Magnesium 2.3 mg/dL (1.6-2.6); Potassium 3.8 mmol/L (3.3-5.1); Sodium 141 mmol/L (135-145); Total Protein 6.5 g/dL (6.5-8.0)
[2021-03-03 09:12] LABS: Troponin-I High Sensitivity 4.9 ng/L (<3.5-17.0)
--- NOTE | 2021-03-03 09:42 | PHA.MEDREC ---
Pharmacy Consult ? Medication Reconciliation Pharmacy has completed the medication reconciliation. There are no remarkable issues for provider's attention. Received patient's medication list from [facility]. Heather Ribera, TabithaD
[2021-03-03 11:05] LABS: Troponin-I High Sensitivity 5.4 ng/L (<3.5-17.0)
--- NOTE | 2021-03-03 11:17 | PC.NURSE ---
daughter requesting dc- not willing to wait for urine sample
== END 2021-03-03 11:37 | disposition home or self-care (01) ==
PROVIDERS: Emergency Provider Emergency Medicine
DX: G30.1 Alzheimer's disease with late onset (principal); Z91.81 History of falling; I10 Essential (primary) hypertension; Z20.822 Contact with and (suspected) exposure to COVID-19
CPT/HCPCS: 36415; 70450; 71045; 72125; 80048; 80076; 82550; 83690; 83735; 84484; 85025; 85610; 85730; 87635; 93005; 99284

== ENCOUNTER 2021-04-26 08:23 | Emergency (ER) | payer MEDICARE, OTHER, SELFPAY ==
--- NOTE | ~2021-04-26 | XR_ITS ---
EXAMINATION: XR CHEST CLINICAL INFORMATION: Fall, trauma COMPARISON: Chest radiographs 03/03/2021, 01/01/2021, 07/18/2020 TECHNIQUE: Portable upright AP view of the chest was obtained. FINDINGS: There is no pneumothorax or pneumomediastinum. No lobar or segmental airspace consolidation or effusion. Mild coarsening of the bronchovascular markings are stable. The heart is normal in size. The hilar and mediastinal contours are normal. There is probable small Bochdalek hernia posterior medial left base similar to the 2 view chest 07/18/2020. No acute bony abnormality. XR/XR chest 1V IMPRESSION: No acute intrathoracic disease.
--- NOTE | ~2021-04-26 | CT_ITS ---
EXAMINATION: CT HEAD WITHOUT CONTRAST CT CERVICAL SPINE WITHOUT CONTRAST CLINICAL INFORMATION: Fall. COMPARISON: Multiple priors, most recent CT head and cervical spine dated 03/03/2021. TECHNIQUE: Contiguous axial imaging was performed from the skull base to vertex without intravenous administration of contrast. Contiguous axial CT images of the cervical spine were obtained without contrast. Sagittal and coronal reformats were provided and reviewed. This CT examination was performed using dose optimization techniques as appropriate, variously including the following: *Automated exposure control *Adjustment of mA and/or kV according to patient size (this includes techniques or standardized protocols for targeted exams where dose is matched to indication/reason for exam; i.e. extremities or head) *Use of iterative reconstruction technique DLP: 1293 mGy-cm FINDINGS: HEAD: There is no evidence of acute intracranial hemorrhage or territorial infarction. No abnormal mass effect or midline shift is seen. Aldrich to white matter differentiation is well preserved. No extra-axial fluid collections are identified. Prominence of the ventricles and sulci, unchanged and consistent with diffuse atrophy. Hypoattenuation of the periventricular white matter, unchanged. Findings can be seen in the setting of chronic microvascular ischemic disease. The osseous structures and soft tissues are normal. The mastoid air cells and visualized portions of the paranasal sinuses are well aerated. CERVICAL SPINE: Normal vertebral body alignment. The normal cervical lordosis is maintained. No acute fracture or subluxation. No loss of vertebral body height. Severe multilevel loss of intervertebral disc height with degenerative endplate changes including endplate cystic change and marginal osteophytes. Multilevel bilateral facet arthropathy with bilateral facet fusion at C7-T1, unchanged. No lytic or blastic osseous lesion. Severe degenerative arthritis at the right and left temporomandibular joints. Unremarkable prevertebral soft tissues. No abnormal soft tissue mass or fluid collection. The thyroid is atrophic. Biapical nodular pleural thickening, unchanged. [id number] multilevel bilateral neural foraminal stenosis, not significantly changed. CT/CT cervical spine wo con IMPRESSION: HEAD: No acute intracranial hemorrhage or mass effect. CERVICAL SPINE: No acute fracture or subluxation. L2 level degenerative disc disease and bilateral facet arthropathy with multilevel bilateral neural foraminal stenosis, unchanged.
--- NOTE | ~2021-04-26 | XR_ITS ---
EXAMINATION: XR PELVIS CLINICAL INFORMATION: Fall. COMPARISON: Pelvic radiographs dated 06/16/2014. TECHNIQUE: AP view of the pelvis. FINDINGS: No displaced fracture. No dislocation. Mild right and left hip joint space narrowing with small marginal osteophytes, slightly progressed. No osseous erosion. No abnormal soft tissue calcification. XR/XR pelvis min 3V IMPRESSION: No acute fracture or dislocation. Mild right and left hip osteoarthritis, progressed when compared to the prior radiographs.
--- NOTE | 2021-04-26 08:29 | ED.FALL ---
HPI - Fall General Chief Complaint: Fall Stated Complaint: FALL,NO C/O PAIN FRROM PT PER EMS Time Seen by Provider: 04/26/21 08:26 Source: patient and EMS Mode of arrival: EMS Limitations: other (cognitive impairment) History of Present Illness complaint: fall Onset (ago): unknown Fall from: other (unknown) Fall witnessed: no Place fall occurred: [facility] Loss of consciousness: unsure Prolonged down time: unclear Symptoms prior to fall: none Context: other (found up against bathroom floor) Location of injury: other (denies) Severity: mild Quality: dull Associated symptoms (after fall): other (told EMS her hips hurt but then denies that to us) Related Data Home Medications Medication Instructions Recorded Confirmed calcium carbonate 500 mg (1,250 1 tab PO DAILY 03/03/21 04/26/21 mg)-vitamin D3 400 unit tablet (Calcium 500 + D) levothyroxine 100 mcg tablet 100 mcg PO SUTH@0600 03/03/21 04/26/21 levothyroxine 112 mcg tablet 112 mcg PO MOTUWEFRSA@0600 03/03/21 04/26/21 quetiapine 50 mg tablet 50 mg PO BEDTIME 03/03/21 04/26/21 sertraline 50 mg tablet 50 tab PO DAILY 03/03/21 04/26/21 Allergies Allergy/AdvReac Type Severity Reaction Status Date / Time No Known Allergies Allergy Unverified 03/25/20 14:42 Review of Systems Review of Systems: ROS unable to be obtained due to cognitive impairment PMFSH Past Medical History Attestation statement: The following information was validated with the patient. Medical History Arthritis Breast cancer Dementia Hypertension Hypothyroidism Osteopenia Social History Social History Alcohol intake: never Patient Tobacco Use Status: Never used Tobacco Advance Directives: Yes Advance Directives Information Provided: No Advance Directives on File: No Physical Exam Vital Signs: Vital Signs: Last Vital Signs Temp 98.1 F 04/26/21 08:40 Pulse 83 04/26/21 08:40 Resp 20 04/26/21 08:40 BP 164/94 H 04/26/21 08:40 Pulse Ox 98 04/26/21 08:40 Body Mass Index 27.4 Appearance: Alert. Oriented X2. No acute distress. Eyes: Pupils equal, round and reactive to light. ENT: Pharynx normal. Neck: Normal inspection. Neck supple. in collar CVS: Normal heart rate and rhythm. Pulses normal. Respiratory: No respiratory distress. Breath sounds normal. Abdomen: Soft and non-tender. Back: no ttp to midline Skin: Skin warm and dry. Normal skin color. Normal skin turgor. Extremities: No lower extremity edema. No calf ttp reports no pain with axial loading of hips Neuro: Oriented X 2. No motor deficit. No sensory deficit. Course Course Course Narrative: daughter still wants patient to go back to facility at this time work up so far negative daughter wants to take patient back to facility MDM - Fall MDM Narrative Medical decision making narrative: 85 yo female with hx of dementia, prior falls, hypothyroidism, here after being found down unsure the time frame. She has no obvious trauma. Will obtain labs, UA, CPK, CT head/cspine, CXR and pelvis xrays. Dispo per results and findings. will discuss with CM if she is safe for DC back to SNF if workup negative Lab Data Result diagrams: 04/26/21 09:50 04/26/21 09:50 Labs: Lab Results 04/26/21 04/26/21 04/26/21 Range/Units 09:50 09:50 09:50 WBC 7.8 (4.8-10.8) X10*3/uL RBC 4.29 (4.20-5.50) X10*6/uL Hgb 13.5 (12.0-16.0) g/dl Hct 39.8 (37-47) % MCV 92.8 (80-98) fL MCH 31.5 (27.0-33.0) pg MCHC 33.9 (31.0-35.0) g/dl RDW 13.0 (11.0-16.0) % Plt Count 221 (160-400) X10*3/uL MPV 10.4 (9.4-12.3) fL Immature Gran % (Auto) 0.3 (0.0-0.4) % Neut % (Auto) 76.9 H (45-73) % Lymph % (Auto) 9.2 L (20-40) % [place] % (Auto) 8.2 (2-11) % Eos % (Auto) 4.9 H (0-4) % Baso % (Auto) 0.5 (0-2) % Lymph # (Auto) 0.7 L (1.2-4.9) X10*3/uL [place] # (Auto) 0.6 (0.1-1.2) X10*3/uL Eos # (Auto) 0.4 (0.0-0.4) X10*3/uL Baso # (Auto) 0.0 (0.0-0.2) X10*3/uL Abs Immat Gran (auto) 0.02 (0.00-0.03) X10*3/uL Absolute Neuts (auto) 6.0 (2.0-8.3) X10*3/uL Absolute Nucleated RBC 0.000 (0.0-0.012) X10*3/uL Nucleated RBC % (auto) 0.0 (0.0-0.2) /100WBC Sodium 143 (135-145) mmol/L Potassium 3.8 (3.3-5.1) mmol/L Chloride 107 (96-108) mmol/L Carbon Dioxide 28 (22-29) mmol/L Anion Gap 12 (12-20) BUN 16 (9-16) mg/dL Creatinine 1.02 (0.5-1.4) mg/dL Estim Creat Clear Calc 42.2 Estimated GFR 52 Random Glucose 99 (60-115) mg/dL Calcium 8.9 (8.4-10.2) mg/dL Magnesium 2.3 (1.6-2.6) mg/dL Total Creatine Kinase 193 H D (26-140) U/L Troponin I High Sens 4.3 (<3.5-17.0) ng/L ECG Data Attestation: I personally reviewed and interpreted this ECG as follows: ECG interpretation date: 04/26/21 ECG interpretation time: 09:52 Interpretation: Rate: 78 Rhythm: NSR [place]: normal Normal P waves. Normal ADAM. Normal QRS complex. ST T wave : nonspecific, no JERMAINE qTC: normal prior studies: no acute ischemia The study has been interpreted contemporaneously by me. . Discharge Plan Discharge Clinical Impression: Fall Patient Disposition: Home, Self-Care Instructions: Fall Prevention for Older Adults (ED) Additional Instructions: return to ED for any worsening symptoms or concerns blood work, EKG stable, negative imaging of hips, chest, CT head/cspine Prescriptions: No Action levothyroxine 100 mcg tablet 100 mcg PO SUTH@0600 RF: 0 sertraline 50 mg tablet 50 tab PO DAILY RF: 0 levothyroxine 112 mcg tablet 112 mcg PO MOTUWEFRSA@0600 RF: 0 quetiapine 50 mg tablet 50 mg PO BEDTIME RF: 0 calcium carbonate-vitamin D3 [Calcium 500 + D] 500 mg(1,250mg) -400 unit Tablet 1 tab PO DAILY RF: 0 Referrals: Margi Stevenson NP [Primary Care Provider] - 2 days (if not better)
--- NOTE | 2021-04-26 08:34 | ECG_ITS ---
Test Reason : FALL Blood Pressure : / mmHG Vent. Rate : 078 BPM Atrial Rate : 078 BPM P-R Int : 156 ms QRS Dur : 074 ms QT Int : 418 ms P-R-T Axes : 073 065 060 degrees QTc Int : 476 ms Normal sinus rhythm Nonspecific ST abnormality Abnormal ECG No significant changes seen Referred By: Gabriela Ivy Electronically Signed By:MANUEL HERBERT MD
[2021-04-26 08:40] VITALS: BP 110/00; BP 164/94; PULSE 83; PULSE 94; RESP 20; TEMP 36.7; O2SAT 97; O2SAT 98; BMI 27.4
--- NOTE | 2021-04-26 08:59 | PHA.MEDREC ---
Pharmacy Consult ? Medication Reconciliation Pharmacy has completed the medication reconciliation. There are no remarkable issues for provider's attention, patient came from the [facility] with a medication list. Heather Verdugo, TabithaD
[2021-04-26 09:56] LABS: MANUAL DIFF FLAG NO
[2021-04-26 10:00] LABS: Basophils Percent Auto 0.5 % (0-2); Eosinophils Absolute Auto 0.4 X10*3/uL (0.0-0.4); Eosinophils Percent Auto 4.9 % (0-4); Hematocrit 39.8 % (37-47); Hemoglobin 13.5 g/dl (12.0-16.0); Imm Gran Abs Auto 0.02 X10*3/uL (0.00-0.03); Imm Gran Pct Auto 0.3 % (0.0-0.4); Lymphocytes Absolute Auto 0.7 X10*3/uL (1.2-4.9); Lymphocytes Percent Auto 9.2 % (20-40); Mean Corpuscular HGB Conc 33.9 g/dl (31.0-35.0); Mean Corpuscular Hemoglobin 31.5 pg (27.0-33.0); Mean Corpuscular Volume 92.8 fL (80-98); Mean Platelet Volume 10.4 fL (9.4-12.3); Monocytes Absolute Auto 0.6 X10*3/uL (0.1-1.2); Monocytes Percent Auto 8.2 % (2-11); Neutrophils Percent Auto 76.9 % (45-73); Platelet Count 221 X10*3/uL (160-400); Red Blood Count 4.29 X10*6/uL (4.20-5.50); White Blood Count 7.8 X10*3/uL (4.8-10.8)
[2021-04-26 10:17] LABS: Anion Gap 12 (12-20); Blood Urea Nitrogen 16 mg/dL (9-16); Calcium 8.9 mg/dL (8.4-10.2); Carbon Dioxide 28 mmol/L (22-29); Chloride 107 mmol/L (96-108); Creatinine Clr Calc Pharmacy 42.2; Estimated Glomerular Filt Rate 52; Glucose Random 99 mg/dL (60-115); Magnesium 2.3 mg/dL (1.6-2.6); Potassium 3.8 mmol/L (3.3-5.1); Sodium 143 mmol/L (135-145)
[2021-04-26 10:20] LABS: Troponin-I High Sensitivity 4.3 ng/L (<3.5-17.0)
[2021-04-26] MEDS: Acetaminophen 325 MG TABLET 650 MG PO (11:45)
[2021-04-26 11:46] VITALS: BP 155/103; PULSE 81; RESP 18; O2SAT 95
--- NOTE | 2021-04-26 11:51 | PC.NURSE ---
PT ALERT BUT PLEASANTLY CONFUSED AT BASELINE,SKIN PWD, RESPIRATIONS EVEN AND UNLABORED, PT SOMETIMES WILL STATE HAVING PAIN IN THE HIP AREA OTHER TIMES DINES PAIN NS ON THE MONITOR, VS STABLE
== END 2021-04-26 12:37 | disposition home or self-care (01) ==
PROVIDERS: Emergency Provider Emergency Medicine; PCP Registered Nurse
DX: Z04.3 Encounter for examination and observation following other accident (principal); I10 Essential (primary) hypertension; F03.90 Unspecified dementia, unspecified severity, without behavioral disturbance, psychotic disturbance, mood disturbance, and anxiety; Z91.81 History of falling
CPT/HCPCS: 36415; 70450; 71045; 72125; 72190; 80048; 82550; 83735; 84484; 85025; 93005; 99284

== ENCOUNTER 2021-05-08 04:05 | Emergency (ER) | payer MEDICARE, OTHER, SELFPAY ==
[2021-05-08 04:10] VITALS: BP 187/103; PULSE 85; RESP 22; TEMP 36.8; O2SAT 96; BMI 33.0
--- NOTE | 2021-05-08 04:18 | PC.NURSE ---
pt had an witness fall. pt has C-Spine precautions. Will continue to monitor
--- NOTE | 2021-05-08 04:47 | PC.NURSE ---
provider in to assess pt. plan is to walk test pt and discharge home. per daughter request does not want additional work up. Will follow plan of care.
--- NOTE | 2021-05-08 04:58 | PC.NURSE ---
pt ambulated a short distance with a steady gait this is the pt baseline. pt made stops to collect her thoughts then needed verbal guidance to complete the walk to and from the bathroom.
--- NOTE | 2021-05-08 05:14 | ED_ITS ---
HPI - Fall General Chief Complaint: Fall Stated Complaint: FALL Time Seen by Provider: 05/08/21 04:24 Source: family (Daughter) and EMS Mode of arrival: EMS History of Present Illness HPI Narrative: This is an 85-year-old female who is brought in via EMS from her [facility] with complaints of fall without head strike or loss of consciousness. The report is that the fall was witnessed. Shortly after patient's arrival the daughter arrived. Related Data Home Medications Medication Instructions Recorded Confirmed calcium carbonate 500 mg (1,250 1 tab PO DAILY 03/03/21 04/26/21 mg)-vitamin D3 400 unit tablet (Calcium 500 + D) levothyroxine 100 mcg tablet 100 mcg PO SUTH@0600 03/03/21 04/26/21 levothyroxine 112 mcg tablet 112 mcg PO MOTUWEFRSA@0600 03/03/21 04/26/21 quetiapine 50 mg tablet 50 mg PO BEDTIME 03/03/21 04/26/21 sertraline 50 mg tablet 50 tab PO DAILY 03/03/21 04/26/21 Allergies Allergy/AdvReac Type Severity Reaction Status Date / Time No Known Allergies Allergy Unverified 03/25/20 14:42 Review of Systems Review of Systems: Yes Unobtainable due to mental condition PMFSH Past Medical History Source: nursing notes reviewed Medical History Arthritis Breast cancer Dementia Hypertension Hypothyroidism Osteopenia Social History Social History Alcohol intake: never Patient Tobacco Use Status: Never used Tobacco Advance Directives: Yes Advance Directives on File: Yes Advance Directives Date on File: 04/27/21 Physical Exam Vital Signs: Vital Signs: Last Vital Signs Temp 98.3 F 05/08/21 04:10 Pulse 85 05/08/21 04:10 Resp 22 H 05/08/21 04:10 BP 187/103 H 05/08/21 04:10 Pulse Ox 96 05/08/21 04:10 Body Mass Index 33.0 VITAL SIGNS: Reviewed. GENERAL: Well developed, well nourished, in no acute distress. HEAD: Normocephalic/atraumatic EYES: PERRLA, EOMI EARS: Ext canals without abnormality, TMs non-bulging and non-erythematous NOSE: Nares patent bilateral OROPHARYNX: no oral lesions noted, posterior pharynx clear NECK: C-collar in place, no adenopathy LUNGS: Normal breath sounds. No adventitious sounds or accessory muscle use. SpO2<96> CARDIOVASCULAR: Regular rate and rhythm without noted murmurs, no JVD or lower extremity edema. ABDOMEN: Soft, non-tender, non-distended with bowel sounds. MUSCULOSKELETAL: No tenderness, deformities, or effusions noted on gross inspection. EXTREMITIES: No cyanosis, clubbing or edema. SKIN: Inspection of the skin reveals no rashes NEUROLOGIC: Alert and oriented x 1. Strength and sensation to light touch were grossly intact x 4, patient walks with a baseline steady gait (daughter provided feedback) Course Course Course Narrative: 85-year-old female with history and clinical presentation consistent with fall and after extensive discussion with the daughter, Lisa, who is at bedside the risks and benefits doing a workup with imaging and labs was reviewed and the daughter declines all further investigations. She understands that this could mean that we may miss an intracranial bleed despite the fact that there are no acute focal findings. Patient is otherwise hemodynamically stable and will be discharged into the care of her daughter. She was strongly encouraged to return should she have any concerns. C-collar removed after exam was without midline tenderness on palpation or on ROM. No focal neurological deficits to suggest spinal cord injury. Discharge Plan Discharge Clinical Impression: Fall Patient Disposition: Home, Self-Care Instructions: Fall Prevention for Older Adults (ED) Additional Instructions: 1. Resume all home medications as prescribed. 2. Do not hesitate to return to the ER for any acute worsening of symptoms. Prescriptions: No Action levothyroxine 100 mcg tablet 100 mcg PO SUTH@0600 RF: 0 sertraline 50 mg tablet 50 tab PO DAILY RF: 0 levothyroxine 112 mcg tablet 112 mcg PO MOTUWEFRSA@0600 RF: 0 quetiapine 50 mg tablet 50 mg PO BEDTIME RF: 0 calcium carbonate-vitamin D3 [Calcium 500 + D] 500 mg(1,250mg) -400 unit Tablet 1 tab PO DAILY RF: 0 Referrals: Margi Stevenson, [employer] [Primary Care Provider] - 2 days
[2021-05-08 05:25] VITALS: BP 158/75; PULSE 79; RESP 16; O2SAT 95
== END 2021-05-08 05:40 | disposition home or self-care (01) ==
PROVIDERS: Emergency Provider Student in an Organized Health Care Education/Training Program; PCP Registered Nurse
DX: Z91.81 History of falling (principal); F03.90 Unspecified dementia, unspecified severity, without behavioral disturbance, psychotic disturbance, mood disturbance, and anxiety; I10 Essential (primary) hypertension
CPT/HCPCS: 51701; 99284

== ENCOUNTER 2021-08-30 05:22 | Emergency (ER) | payer MEDICARE, OTHER, SELFPAY ==
--- NOTE | ~2021-08-30 | CT_ITS ---
EXAMINATION: NONCONTRAST HEAD CT NONCONTRAST CERVICAL SPINE CT INDICATION INFORMATION: Headache. Fall. COMPARISON: 04/26/2021 TECHNIQUE: Separate noncontrast CT examinations of the head and cervical spine were performed. Coronal and sagittal images were created for each examination at the technologist workstation. This CT examination was performed using dose optimization techniques as appropriate, variously including the following: *Automated exposure control *Adjustment of mA and/or kV according to patient size (this includes techniques or standardized protocols for targeted exams where dose is matched to indication/reason for exam; i.e. extremities or head) *Use of iterative reconstruction technique DLP: 2013 mGy-cm FINDINGS: Head: There is no evidence of acute intracranial hemorrhage or territorial infarction. No abnormal mass effect or midline shift is seen. Aldrich to white matter differentiation is well preserved. No extra-axial fluid collections are identified. No hydrocephalus. Proportional prominence of the ventricles and sulcal spaces is consistent with moderate volume loss. Patchy periventricular and deep white matter hypoattenuation is consistent with mild small vessel ischemic changes. No acute osseous or soft tissue abnormality. The mastoid air cells and visualized portions of the paranasal sinuses are well aerated. Cervical spine: There is anatomic alignment of the vertebral bodies and posterior elements. The atlantoaxial and atlantooccipital articulations are intact. Vertebral body heights are maintained. There is multilevel intervertebral disc space narrowing with endplate osteophyte formation and facet arthropathy. No evidence of acute fracture. No prevertebral soft tissue swelling. Pleural thickening at the lung apices.. The thyroid gland is unremarkable. CT/CT cervical spine wo con IMPRESSION: 1. No acute intracranial finding. 2. No fracture or malalignment of the cervical spine. Moderate degenerative change.
--- NOTE | ~2021-08-30 | XR_ITS ---
EXAMINATION: XR ANKLE, RIGHT CLINICAL INFORMATION: Fall. Swelling. COMPARISON: None TECHNIQUE: AP, lateral, and mortise views of the right ankle. FINDINGS: There is no fracture or dislocation. The ankle mortise is congruent. There is circumferential soft tissue swelling. Small Achilles heel spur. No ankle joint effusion. XR/XR ankle RT min 3V IMPRESSION: Soft tissue swelling surrounding the ankle. No fracture or malalignment.
--- NOTE | ~2021-08-30 | CT_ITS ---
EXAMINATION: CT CHEST WITHOUT CONTRAST CT ABDOMEN AND PELVIS WITHOUT CONTRAST CLINICAL INFORMATION: Fall. Pain. COMPARISON: None. TECHNIQUE: Multidetector volumetric imaging was performed through the chest, abdomen and pelvis without contrast. Sagittal and coronal reformatted images were obtained on the technologist's workstation. Axial MIP volume rendering provided. This CT examination was performed using dose optimization techniques as appropriate, variously including the following: *Automated exposure control *Adjustment of mA and/or kV according to patient size (this includes techniques or standardized protocols for targeted exams where dose is matched to indication/reason for exam; i.e. extremities or head) *Use of iterative reconstruction technique DLP: 1490 mGy-cm. FINDINGS: CHEST: Lungs: The central airways are patent. Pleural thickening at the apices. Mild dependent atelectasis. No consolidation. No pleural effusion or pneumothorax. There are no pulmonary parenchymal nodules. Mediastinum: The heart is of normal size. Coronary artery calcifications. There is no pericardial effusion. Central vascular structures are unremarkable. No hilar or mediastinal lymphadenopathy. Chest Wall/Axilla: No lymphadenopathy. No chest wall mass. ABDOMEN/PELVIS: Liver, Gallbladder, Biliary Tree: The liver is normal in size, shape, and attenuation. No focal hepatic lesion or biliary ductal dilatation is present. The gallbladder is unremarkable with no evidence of radiopaque gallstones, gallbladder wall thickening, or pericholecystic inflammatory changes. Pancreas: Unremarkable. Spleen: Unremarkable. Adrenal Glands: Unremarkable. Kidneys and Ureters: Atrophic left kidney. Normal size right kidney. No hydronephrosis or nephrolithiasis. Bladder: Unremarkable. Gastrointestinal Tract: Moderate hiatal hernia. The stomach is otherwise unremarkable. Normal caliber small bowel. No obstruction. No colonic wall thickening or acute inflammation. There is colonic diverticulosis without diverticulitis. No free air. No free fluid. Abdominal Wall: No hernia is demonstrated. Lymphovascular Structures: Lymph nodes: Normal. Vascular: Normal caliber aorta with moderate atherosclerotic calcification Pelvic Viscera: The uterus and adnexa are unremarkable. OSSEOUS STRUCTURES: Nondisplaced fractures of the left posterior lateral eighth, ninth, and 10th ribs Grade 1 anterolisthesis of L4 on L5 with multilevel lumbar disc space narrowing and vacuum disc phenomenon. Vertebral body height and alignment otherwise maintained. Intact sternum. Chronic right lateral sixth rib fracture which has healed. No pelvic fracture. CT/CT abdomen pelvis wo con IMPRESSION: Nondisplaced left posterolateral eighth, ninth, and 10th rib fractures. No additional acute traumatic finding of the chest, abdomen, or pelvis. Moderate hiatal hernia. Atrophic left kidney.
[2021-08-30 05:29] VITALS: BP 162/96; BP 210/100; PULSE 100; PULSE 93; RESP 18; TEMP 37.1; O2SAT 97; O2SAT 99; BMI 35.2
--- NOTE | 2021-08-30 05:30 | ECG_ITS ---
Test Reason : FALL Blood Pressure : / mmHG Vent. Rate : 084 BPM Atrial Rate : 084 BPM P-R Int : 150 ms QRS Dur : 072 ms QT Int : 396 ms P-R-T Axes : 077 046 086 degrees QTc Int : 467 ms Normal sinus rhythm Nonspecific ST and T wave abnormality Abnormal ECG When compared with ECG of 26-APR-2021 09:42, No significant changes seen Referred By: Debra Yeung Electronically Signed By:DAVID HOANG
--- NOTE | 2021-08-30 05:31 | ED_ITS ---
HPI - Fall General Chief Complaint: Fall Stated Complaint: fall Time Seen by Provider: 08/30/21 05:30 Source: EMS Mode of arrival: EMS History of Present Illness HPI Narrative: 85-year-old female brought in by EMS from [facility] for a fall and patient not on anticoagulation. History unable to be obtained from the patient with due to underlying dementia. Patient denies any shortness of breath or chest pain and denies any hip pain. Related Data Home Medications Medication Instructions Recorded Confirmed calcium carbonate 500 mg-vitamin 1 tab PO DAILY 03/03/21 04/26/21 D3 10 mcg (400 unit) tablet (Calcium 500 + D) levothyroxine 100 mcg tablet 100 mcg PO SUTH@0600 03/03/21 04/26/21 levothyroxine 112 mcg tablet 112 mcg PO MOTUWEFRSA@0600 03/03/21 04/26/21 quetiapine 50 mg tablet 50 mg PO BEDTIME 03/03/21 04/26/21 sertraline 50 mg tablet 50 tab PO DAILY 03/03/21 04/26/21 Allergies Allergy/AdvReac Type Severity Reaction Status Date / Time No Known Allergies Allergy Unverified 03/25/20 14:42 Review of Systems Review of Systems: Pertinent positives and negatives as stated in HPI and review of systems unable to be completed a due to patient's underlying dementia. PMFSH Past Medical History Source: nursing notes reviewed Medical History Arthritis Breast cancer Dementia Hypertension Hypothyroidism Osteopenia Social History Social History Alcohol intake: never Patient Tobacco Use Status: Never used Tobacco Advance Directives: Yes Advance Directives on File: Yes Advance Directives Date on File: 04/27/21 Physical Exam Vital Signs: Vital Signs: Last Vital Signs Temp 98.8 F 08/30/21 05:29 Pulse 93 08/30/21 05:29 Resp 18 08/30/21 05:29 BP 162/96 H 08/30/21 05:29 Pulse Ox 97 08/30/21 05:29 BMI result Body Mass Index 35.2 VITAL SIGNS: Reviewed. GENERAL: Well developed, well nourished, in mild distress. HEAD: Normocephalic/atraumatic EYES: PERRLA, EOMI EARS: Ext canals without abnormality OROPHARYNX: no oral lesions noted, posterior pharynx clear NECK: Supple, no adenopathy, no midline cervical spine tenderness or step-offs noted LUNGS: Normal breath sounds. CARDIOVASCULAR: Regular rate and rhythm without noted murmurs ABDOMEN: Soft, non-tender, non-distended with bowel sounds PELVIS: Stable and nontender MUSCULOSKELETAL: No tenderness, deformities, or effusions noted on gross inspection. EXTREMITIES: No cyanosis, clubbing or edema. SKIN: Inspection of the skin reveals no rashes NEUROLOGIC: Alert and oriented x 1. Strength and sensation to light touch were grossly intact x 4. Course Course Course Narrative: 85-year-old female with history and clinical presentation consistent with fall. Patient cries out in pain during 12 lead EKG in so decision was made to proceed with scanning chest/abdomen/pelvis. Urinalysis negative for infection. Signed out to Dr. Diaz for f/u scans. MDM - Fall Lab Data Labs: Lab Results 08/30/21 Range/Units 05:49 Urine Color YELLOW Urine Appearance CLEAR Urine pH 6.5 (5.0-8.0) Ur Specific Carlotta 1.015 (1.005-1.025) Urine Protein NEG (NEG-TRACE) MG/DL Urine Glucose (UA) NEG (NEG) MG/DL Urine Ketones NEG (NEG) MG/DL Urine Blood NEG (NEG) Urine Nitrite NEG (NEG) Ur Leukocyte Esterase NEG (NEG) ECG Data Attestation: I personally reviewed and interpreted this ECG as follows: Prior ECG tracings: available for review Interpretation: NSR, HR-84, no STEMI, AR/QRS/QTC are within normal limits. Discharge Plan Discharge Clinical Impression: Dementia, Fall Patient Disposition: Still a Patient Prescriptions: No Action levothyroxine 100 mcg tablet 100 mcg PO SUTH@0600 0RF sertraline 50 mg tablet 50 tab PO DAILY 0RF levothyroxine 112 mcg tablet 112 mcg PO MOTUWEFRSA@0600 0RF quetiapine 50 mg tablet 50 mg PO BEDTIME 0RF calcium carbonate-vitamin D3 [Calcium 500 + D] 500 mg(1,250mg) -400 unit Tablet 1 tab PO DAILY 0RF
[2021-08-30 05:56] LABS: Appearance Urine CLEAR; Color Urine YELLOW; Glucose Urine UA NEG (NEG); Leukocyte Esterase Urine NEG (NEG); Nitrite Urine NEG (NEG); PH 6.5 (5.0-8.0); Specific Gravity - Urine 1.015 (1.005-1.025); Urine Blood NEG (NEG); Urine Ketones NEG (NEG); Urine Protein NEG (NEG-TRACE)
[2021-08-30] MEDS: fentaNYL citrate/PF 100 MCG/2 ML VIAL 25 MCG IVPUSH (06:10)
[2021-08-30] MEDS: Ketorolac Tromethamine 30 MG/ML VIAL 15 MG IVPUSH (06:10)
[2021-08-30 07:34] LABS: Basophils Percent Auto 0.4 % (0-2); Eosinophils Absolute Auto 0.1 X10*3/uL (0.0-0.4); Eosinophils Percent Auto 1.4 % (0-4); Hematocrit 40.2 % (37.0-47.0); Hemoglobin 13.2 g/dl (12.0-16.0); Imm Gran Abs Auto 0.03 X10*3/uL (0.00-0.03); Imm Gran Pct Auto 0.3 % (0.0-0.4); Lymphocytes Absolute Auto 0.5 X10*3/uL (1.2-4.9); Lymphocytes Percent Auto 5.1 % (20-40); MANUAL DIFF FLAG NO; Mean Corpuscular HGB Conc 32.8 g/dl (31.0-35.0); Mean Corpuscular Hemoglobin 30.9 pg (27.0-33.0); Mean Corpuscular Volume 94.1 fL (80.0-98.0); Mean Platelet Volume 9.8 fL (9.4-12.3); Monocytes Absolute Auto 0.7 X10*3/uL (0.1-1.2); Monocytes Percent Auto 7.7 % (2-11); Neutrophils Absolute Auto 7.7 x10*3/uL (2.0-8.3); Neutrophils Percent Auto 85.1 % (45-73); Platelet Count 196 X10*3/uL (160-400); Red Blood Count 4.27 X10*6/uL (4.20-5.50); Red Cell Distribution Width 13.2 % (11.0-16.0); White Blood Count 9.1 X10*3/uL (4.8-10.8)
[2021-08-30 07:48] LABS: Anion Gap 10 (12-20); Blood Urea Nitrogen 18 mg/dL (9-16); Calcium 8.9 mg/dL (8.4-10.2); Carbon Dioxide 29 mmol/L (22-29); Chloride 107 mmol/L (96-108); Creatinine Clr Calc Pharmacy 53.6; Estimated Glomerular Filt Rate 59; Glucose Random 101 mg/dL (60-115); Potassium 4.3 mmol/L (3.3-5.1); Sodium 142 mmol/L (135-145)
[2021-08-30 07:55] LABS: Troponin-I High Sensitivity 3.6 ng/L (<3.5-17.0)
--- NOTE | 2021-08-30 08:45 | PHA.MEDREC ---
MED REC COMPLETE, NO ISSUES, LIST FROM OTHER FACILITY Pharmacy Consult ? Medication Reconciliation Pharmacy has completed the medication reconciliation.
[2021-08-30 09:51] VITALS: BP 162/96; PULSE 93; O2SAT 97
[2021-08-30 10:09] LABS: Influenza A PCR NEGATIVE (Negative); Influenza B PCR NEGATIVE (Negative); Resp Syncy Virus RNA Qual PCR NEGATIVE (Negative); SARS COV2 PCR INHOUSE NEGATIVE (Negative)
--- NOTE | 2021-08-30 10:21 | PC.NURSE ---
Pt denies pain, in bed with eyes closed, no facial grimace. Pt very confused, unable to answer orientation questions. When asked about the year pt states i dont know and i dont care Pt calm but needs reassurance for care given. Removed BP cuff prior to obtaining BP. Seen by PT but unable to do eval d/t pt mental status and inability to follow commands. Breathing equal and unlabored. Skin pwd.
[2021-08-30 10:36] VITALS: BP 179/72; PULSE 69; RESP 16; TEMP 37.1
--- NOTE | 2021-08-30 11:35 | MHC.CM.ED ---
Received case management consult from Dr Diaz. Patient came to the ER after a fall at [facility]. Patient found to have a couple of fractured ribs. Physical therapy eval completed. 29/01 care vs prison care was recommended because patient is not able to follow cues. Spoke with Ed at [facility]. Patient receives assistance with all ADL's. Spoke with patient's granddaughter, Cindy via telephone at [phone]. Cindy agrees that patient would not be good short term rehab candidate. She will be at the ER around 1pm. She will bring a copy of patient's HCP. As long as patient can ambulate, she will be able to return to her assisted living facility. She will need scheduled pain medications. [facility] are not allowed to give As needed medications. Continue to monitor for d/c needs.
--- NOTE | 2021-08-30 13:30 | MHC.CM.ED ---
Patient's granddaughter, Cindy is on site. She will transport patient back to assisted living facility. Zonia ABAD and Dr Diaz aware. Continue to monitor for d/c needs.
== END 2021-08-30 13:45 | disposition skilled nursing facility (03) ==
PROVIDERS: Student in an Organized Health Care Education/Training Program; Emergency Provider Emergency Medicine; PCP Registered Nurse
DX: S22.42XA Multiple fractures of ribs, left side, initial encounter for closed fracture (principal); W19.XXXA Unspecified fall, initial encounter; F03.90 Unspecified dementia, unspecified severity, without behavioral disturbance, psychotic disturbance, mood disturbance, and anxiety; I10 Essential (primary) hypertension; Y93.9 Activity, unspecified; Y92.099 Unspecified place in other non-institutional residence as the place of occurrence of the external cause; Y99.9 Unspecified external cause status; Z20.822 Contact with and (suspected) exposure to COVID-19
CPT/HCPCS: 0241U; 36415; 51701; 70450; 71250; 72125; 73610; 74176; 80048; 81003; 84484; 85025; 93005; 96374; 96375; 97162; 99285; J1885; J3010

== ENCOUNTER 2021-10-04 07:24 | Emergency (ER) | payer MEDICARE, OTHER, SELFPAY ==
--- NOTE | ~2021-10-04 | CT_ITS ---
EXAMINATION: CT HEAD WITHOUT CONTRAST CLINICAL INFORMATION: Found on ground. Fall. COMPARISON: Previous head CT most recent April 2021 TECHNIQUE: Contiguous axial imaging was performed from the skull base to vertex without intravenous administration of contrast. This CT examination was performed using dose optimization techniques as appropriate, variously including the following: *Automated exposure control *Adjustment of mA and/or kV according to patient size (this includes techniques or standardized protocols for targeted exams where dose is matched to indication/reason for exam; i.e. extremities or head) *Use of iterative reconstruction technique DLP: 2013 mGy-cm FINDINGS: There is no evidence of an extra-axial collection. There is no evidence of intra-axial or extra-axial hemorrhage. The ventricles and extra-axial CSF spaces are prominent suggestive of generalized atrophy. There is mild nonspecific periventricular white matter disease. No mass, mass effect or infarct is seen. No skull fracture is seen. There are degenerative changes of the temporomandibular joints. Visualized paranasal sinuses, mastoid air cells and middle ears are clear. CT/CT head/brain wo con IMPRESSION: No acute findings. Generalized atrophy.
[2021-10-04 07:31] VITALS: BP 178/90; PULSE 102; O2SAT 95
[2021-10-04 07:32] VITALS: BP 144/81; PULSE 87; RESP 18; TEMP 37.1; O2SAT 95; BMI 32.5
[2021-10-04 08:16] VITALS: BP 128/72; PULSE 84; RESP 16; O2SAT 94
--- NOTE | 2021-10-04 08:27 | ECG_ITS ---
Test Reason : FALL Blood Pressure : / mmHG Vent. Rate : 083 BPM Atrial Rate : 083 BPM P-R Int : 152 ms QRS Dur : 074 ms QT Int : 418 ms P-R-T Axes : 078 057 058 degrees QTc Int : 491 ms Normal sinus rhythm Nonspecific ST abnormality Prolonged QT Abnormal ECG When compared with ECG of 30-AUG-2021 05:33, No significant change was found Referred By: Josemanuel Washburn Electronically Signed By:DAVID HOANG
--- NOTE | 2021-10-04 08:29 | ED.GENADULT ---
HPI - General Adult General Chief complaint: Fall Stated complaint: fall Time Seen by Provider: 10/04/21 09:17 Source: patient Mode of arrival: ambulatory Limitations: no limitations History of Present Illness HPI narrative: 86-year-old female history of memory loss, insomnia, anxiety, hydronephrosis, osteopenia, and hypertension presents to the ED for evaluation. Patient was found on the floor and in front of the bathroom in the sitting position. EMS states nursing staff informed them patient stated that she had some neck pain & lower extremity leg pain. Patient presently due to memory loss does not know why she is here and states she is fine. Patient is not in any distress Related Data Home Medications Medication Instructions Recorded Confirmed calcium carbonate 500 mg-vitamin 1 tab PO DAILY 03/03/21 10/04/21 D3 10 mcg (400 unit) tablet (Calcium 500 + D) levothyroxine 100 mcg tablet 100 mcg PO SUTH@0600 03/03/21 10/04/21 levothyroxine 112 mcg tablet 112 mcg PO MOTUWEFRSA@0600 03/03/21 10/04/21 quetiapine 50 mg tablet 50 mg PO BEDTIME 03/03/21 10/04/21 sertraline 50 mg tablet 50 tab PO DAILY 03/03/21 10/04/21 Allergies Allergy/AdvReac Type Severity Reaction Status Date / Time lorazepam [From Ativan] AdvReac Drowsy Verified 10/04/21 15:17 Review of Systems Review of Systems: Found on ground. Neck pain, bilateral leg pain Yes all other systems are reviewed and are negative PMF Past Medical History Medical History Arthritis Breast cancer Dementia Hypertension Hypothyroidism Osteopenia Social History Social History Alcohol intake: never Patient Tobacco Use Status: Never used Tobacco Advance Directives: Yes Advance Directives on File: Yes Advance Directives Date on File: 04/27/21 Physical Exam ED Vital Signs: Vital Signs - 24 hr 10/04/21 07:32 10/04/21 08:16 10/04/21 10:00 Temperature 98.8 F Pulse Rate 87 84 89 Respiratory Rate 18 16 16 Blood Pressure 144/81 H 128/72 141/63 H Pulse Oximetry 95 94 97 BMI result Body Mass Index 32.5 Const General: cooperative, healthy appearing, comfortable, no acute distress, well developed, alert, awake and Physically active Orientation/consciousness: patient oriented x3 [facility] Head: Yes normal to inspection, Yes No palpable skull fracture present, Yes normocephalic, Yes atraumatic and No abrasion Eyes General: appearance normal, both eyes and all related structures Neck Other: Patient in C-collar Neck: Yes normal visual inspection, Yes full ROM, Yes no lymphadenopathy, Yes no meningeal signs, Yes trachea midline, Yes supple, No anterior neck swelling and No tender Chest Chest palpation & inspection: normal inspection of the chest and normal palpation of entire chest wall Resp Effort & Inspection: normal respiratory effort and able to speak in complete sentences Auscultation: clear to auscultation bilaterally Cardio Jugular venous distension: no JVD Heart sounds: S1 normal heart sound present and S2 normal heart sound present GI Inspection: Yes normal to inspection and No abdominal wall ecchymosis Palpation (GI): Soft to palpation, not firm, nontender, no guarding, not rigid and hepatosplenomegaly present General: No CVA tenderness and Yes no CVA tenderness Back/Spine/Pelvis Back: no CVA tenderness, No CVA tenderness and No back tenderness Skin General skin exam: no rashes or lesions noted and elasticity normal Neuro General: patient oriented x3, gait normal, no meningeal signs and CN's II-XI intact bilaterally Cranial nerves: Yes CN's II-XII intact bilaterally Extrem Other: Patient has complete range of motion of all extremities. All extremities negative for any erythema, ecchymosis, crepitus, swelling, or deformities. All extremities motor/neuro/vascular exam intact General: Yes normal to inspection and Yes full ROM Psych Appearance: grossly normal, well kempt and not disheveled Course Course Course Narrative: Due to patient having memory loss and being found on floor in a sitting position in front of the bathroom. Patient looks well but will do medical evaluation and imaging. Reevaluation(s) Reevaluation #1: Patient initial labs are normal. EKG negative STEMI. Although patient was Found sitting up on the floor i weill to send patient for imaging head and neck motion is no trauma and checked the chest from a trauma also check for pneumonia. Plan was also to check abdomen to check for hip fracture. Patient due to dementia she began decompensating started taking her clothes off in the bed and moving all her extremities while being neck collar. Patient given Ativan 1 with ineffective so results of more Ativan and Haldol ordered the patient could be sedated for imaging. Power of associate attorney her daughter Shirley came to the ED and stated she knows her mother just having dementia and does not want any imaging states her mother is fine and also is DNI DNR. She states lab work adjust suffice. She takes mother might need 24 hour care due to worsening dementia and agreeable to speak with rn case manager. dock manager Coral made aware. Time: 11:59 Reevaluation #2: Daughter Shirley who is the healthcare proxy and Power of associate attorney and who signed DNI DNR for patient does not want any repeat troponin and once again does not want any imaging. she understands risk of bleeding, neck fracture, abdominal injury, pneumonia, chest rib injury, pneumothorax, hemothorax, hip fracture, and heart attack. but she refuses all those repeat troponin images and would like to bring patient back to [facility]. She understands the risk. dock manager Meryl spoke with her and patient will be going to [facility] Time: 13:26 Medical Decision Making MDM Narrative Medical decision making narrative: Dementia. Fall Lab Data Result diagrams: 10/04/21 08:49 10/04/21 09:47 Labs: Lab Results 10/04/21 10/04/21 10/04/21 Range/Units 08:49 08:49 08:49 WBC 10.4 (4.8-10.8) X10*3/uL RBC 4.47 (4.20-5.50) X10*6/uL Hgb 14.0 (12.0-16.0) g/dl Hct 41.6 (37.0-47.0) % MCV 93.1 (80.0-98.0) fL MCH 31.3 (27.0-33.0) pg MCHC 33.7 (31.0-35.0) g/dl RDW 13.0 (11.0-16.0) % Plt Count 232 (160-400) X10*3/uL MPV 10.1 (9.4-12.3) fL Immature Gran % (Auto) 0.4 (0.0-0.4) % Neut % (Auto) 80.1 H (45-73) % Lymph % (Auto) 7.0 L (20-40) % [place] % (Auto) 9.3 (2-11) % Eos % (Auto) 2.7 (0-4) % Baso % (Auto) 0.5 (0-2) % Lymph # (Auto) 0.7 L (1.2-4.9) X10*3/uL [place] # (Auto) 1.0 (0.1-1.2) X10*3/uL Eos # (Auto) 0.3 (0.0-0.4) X10*3/uL Baso # (Auto) 0.1 (0.0-0.2) X10*3/uL Abs Immat Gran (auto) 0.04 H (0.00-0.03) X10*3/uL Absolute Neuts (auto) 8.3 (2.0-8.3) x10*3/uL Absolute Nucleated RBC 0.000 (0.0-0.012) X10*3/uL Nucleated RBC % (auto) 0.0 (0.0-0.2) /100WBC PT 11.6 (9.9-13.0) SEC INR 1.0 (0.9-1.1) APTT 30.4 (24.1-38.0) SEC Sodium (135-145) mmol/L Potassium (3.3-5.1) mmol/L Chloride (96-108) mmol/L Carbon Dioxide (22-29) mmol/L Anion Gap (12-20) BUN (9-16) mg/dL Creatinine (0.5-1.4) mg/dL Estim Creat Clear Calc Estimated GFR Random Glucose (60-115) mg/dL Calcium (8.4-10.2) mg/dL Magnesium (1.6-2.6) mg/dL Total Bilirubin (0.0-1.0) mg/dL AST (5-31) U/L ALT (0-31) U/L Alkaline Phosphatase (39-117) U/L Total Creatine Kinase (26-140) U/L Troponin I High Sens 7.2 D (<3.5-17.0) ng/L B-Natriuretic Peptide 64 (<100) pg/mL Total Protein (6.5-8.0) g/dL Albumin (3.5-5.0) g/dL Urine Color Urine Appearance Urine pH (5.0-8.0) Ur Specific [place] (1.005-1.025) Urine Protein (NEG-TRACE) MG/DL Urine Glucose (UA) (NEG) MG/DL Urine Ketones (NEG) MG/DL Urine Blood (NEG) Urine Nitrite (NEG) Ur Leukocyte Esterase (NEG) Urine RBC (0) /HPF Urine WBC (0-4) /HPF Ur Squamous Epith Cells /LPF Urine Bacteria /LPF 10/04/21 10/04/21 Range/Units 09:00 09:47 WBC (4.8-10.8) X10*3/uL RBC (4.20-5.50) X10*6/uL Hgb (12.0-16.0) g/dl Hct (37.0-47.0) % MCV (80.0-98.0) fL MCH (27.0-33.0) pg MCHC (31.0-35.0) g/dl RDW (11.0-16.0) % Plt Count (160-400) X10*3/uL MPV (9.4-12.3) fL Immature Gran % (Auto) (0.0-0.4) % Neut % (Auto) (45-73) % Lymph % (Auto) (20-40) % [place] % (Auto) (2-11) % Eos % (Auto) (0-4) % Baso % (Auto) (0-2) % Lymph # (Auto) (1.2-4.9) X10*3/uL [place] # (Auto) (0.1-1.2) X10*3/uL Eos # (Auto) (0.0-0.4) X10*3/uL Baso # (Auto) (0.0-0.2) X10*3/uL Abs Immat Gran (auto) (0.00-0.03) X10*3/uL Absolute Neuts (auto) (2.0-8.3) x10*3/uL Absolute Nucleated RBC (0.0-0.012) X10*3/uL Nucleated RBC % (auto) (0.0-0.2) /100WBC PT (9.9-13.0) SEC INR (0.9-1.1) APTT (24.1-38.0) SEC Sodium 142 (135-145) mmol/L Potassium 4.3 (3.3-5.1) mmol/L Chloride 105 (96-108) mmol/L Carbon Dioxide 28 (22-29) mmol/L Anion Gap 13 (12-20) BUN 18 H (9-16) mg/dL Creatinine 0.96 (0.5-1.4) mg/dL Estim Creat Clear Calc 46.2 Estimated GFR 55 Random Glucose 108 (60-115) mg/dL Calcium 9.1 (8.4-10.2) mg/dL Magnesium 2.1 (1.6-2.6) mg/dL Total Bilirubin 0.5 (0.0-1.0) mg/dL AST 22 (5-31) U/L ALT 23 (0-31) U/L Alkaline Phosphatase 90 (39-117) U/L Total Creatine Kinase 356 H D (26-140) U/L Troponin I High Sens (<3.5-17.0) ng/L B-Natriuretic Peptide (<100) pg/mL Total Protein 6.6 (6.5-8.0) g/dL Albumin 3.9 (3.5-5.0) g/dL Urine Color STRAW Urine Appearance CLEAR Urine pH 7.0 (5.0-8.0) Ur Specific [place] 1.010 (1.005-1.025) Urine Protein NEG (NEG-TRACE) MG/DL Urine Glucose (UA) NEG (NEG) MG/DL Urine Ketones NEG (NEG) MG/DL Urine Blood 2+ H (NEG) Urine Nitrite NEG (NEG) Ur Leukocyte Esterase NEG (NEG) Urine RBC 5-9 H (0) /HPF Urine WBC 0 (0-4) /HPF Ur Squamous Epith Cells TRACE /LPF Urine Bacteria NONE /LPF ECG Data Interpretation: Normal sinus rhythm. Reticular 83. Peer into the 152. QRS 70 6p QTC 491. Negative STEMI Discharge Plan Discharge Clinical Impression: Dementia, Fall Patient Disposition: Home, Self-Care Additional Instructions: Patient she be brought back to the ED for any chest pain, shortness of breath, altered mental status, intractable fever, chills, slurred speech, facial droop, abdominal pain, coughing up blood, dysuria, hematuria, paralysis of extremities, or any other concerning symptoms Prescriptions: No Action levothyroxine 100 mcg tablet 100 mcg PO SUTH@0600 0RF sertraline 50 mg tablet 50 tab PO DAILY 0RF levothyroxine 112 mcg tablet 112 mcg PO MOTUWEFRSA@0600 0RF quetiapine 50 mg tablet 50 mg PO BEDTIME 0RF calcium carbonate-vitamin D3 [Calcium 500 + D] 500 mg(1,250mg) -400 unit Tablet 1 tab PO DAILY 0RF Interventions: ED Discharge Assessment Last Done: 10/04/21 15:18 Discharge Date/Time: 10/04/21 15:18 Print Language: Maltese
[2021-10-04 08:57] LABS: MANUAL DIFF FLAG NO
[2021-10-04 08:58] LABS: Basophils Absolute Auto 0.1 X10*3/uL (0.0-0.2); Basophils Percent Auto 0.5 % (0-2); Eosinophils Absolute Auto 0.3 X10*3/uL (0.0-0.4); Eosinophils Percent Auto 2.7 % (0-4); Hematocrit 41.6 % (37.0-47.0); Imm Gran Abs Auto 0.04 X10*3/uL (0.00-0.03); Imm Gran Pct Auto 0.4 % (0.0-0.4); Lymphocytes Absolute Auto 0.7 X10*3/uL (1.2-4.9); Mean Corpuscular HGB Conc 33.7 g/dl (31.0-35.0); Mean Corpuscular Hemoglobin 31.3 pg (27.0-33.0); Mean Corpuscular Volume 93.1 fL (80.0-98.0); Mean Platelet Volume 10.1 fL (9.4-12.3); Monocytes Percent Auto 9.3 % (2-11); Neutrophils Absolute Auto 8.3 x10*3/uL (2.0-8.3); Neutrophils Percent Auto 80.1 % (45-73); Platelet Count 232 X10*3/uL (160-400); Red Blood Count 4.47 X10*6/uL (4.20-5.50); White Blood Count 10.4 X10*3/uL (4.8-10.8)
[2021-10-04] MEDS: 0.9 % Sodium Chloride 1,000 ML 999 ML IV (09:00)
[2021-10-04 09:05] LABS: Appearance Urine CLEAR; Color Urine STRAW; Glucose Urine UA NEG (NEG); Leukocyte Esterase Urine NEG (NEG); Nitrite Urine NEG (NEG); UACC Culture Trigger NO; Urine Blood 2+ (NEG); Urine Ketones NEG (NEG); Urine Protein NEG (NEG-TRACE)
[2021-10-04 09:13] LABS: Squamous Epithelial Cell Urine TRACE /LPF; WBC Urine 0 /HPF (0-4)
[2021-10-04 09:15] LABS: Prothrombin Time 11.6 SEC (9.9-13.0)
[2021-10-04 09:18] LABS: Partial Thromboplastin Time 30.4 SEC (24.1-38.0)
[2021-10-04] MEDS: LORazepam 2 MG/ML VIAL 1 MG IVPUSH (09:22)
[2021-10-04 09:26] LABS: B Type Natriuretic Peptide 64 pg/mL (<100); Troponin-I High Sensitivity 7.2 ng/L (<3.5-17.0)
[2021-10-04 10:00] VITALS: BP 141/63; PULSE 89; RESP 16; O2SAT 97
[2021-10-04 10:18] LABS: Alanine Aminotransferase 23 U/L (0-31); Albumin Level 3.9 g/dL (3.5-5.0); Alkaline Phosphatase 90 U/L (39-117); Anion Gap 13 (12-20); Aspartate Amino Transferase 22 U/L (5-31); Bilirubin Total 0.5 mg/dL (0.0-1.0); Blood Urea Nitrogen 18 mg/dL (9-16); Calcium 9.1 mg/dL (8.4-10.2); Carbon Dioxide 28 mmol/L (22-29); Chloride 105 mmol/L (96-108); Creatinine Clr Calc Pharmacy 46.2; Estimated Glomerular Filt Rate 55; Glucose Random 108 mg/dL (60-115); Magnesium 2.1 mg/dL (1.6-2.6); Potassium 4.3 mmol/L (3.3-5.1); Sodium 142 mmol/L (135-145); Total Protein 6.6 g/dL (6.5-8.0)
--- NOTE | 2021-10-04 11:37 | PC.NURSE ---
Patient daughter at bedside, does not want to have any further work up, no imaging. patient had pulled IV out, does not want IV to be placed back. PA at bedside and spoke with daughter and aware of above as well. Plan is for case management to assess patient.
--- NOTE | 2021-10-04 12:51 | PC.NURSE ---
patient daughter does not want repeat troponin drawn, states 'her heart is fine.''
--- NOTE | 2021-10-04 13:05 | MHC.CM.ED ---
Addendum entered by Nellie Sanchez 10/04/21 13:33: Luz Maria feels patient is too drowsy to be transported by personal vehicle. [facility] BLS booked. [facility] with chart. Original Note: Received case management consult from Josemanuel ROOT. Patient has advanced dementia and resides at [facility]. Patient fell and was brought to the ER. Met with patient and daughter Luz Maria in regards to discharge planning. Luz Maria feels patient can safely return to assisted living facility. The staff currently checks on patient every hour. Luz Maria has asked staff to check on her every 30 mins. Luz Maria will transport patient home. Emily ABAD and Josemanuel ROOT aware. Continue to monitor for d/c needs.
--- NOTE | 2021-10-04 15:17 | PC.NURSE ---
added Ativan to allergy list per request of daughter, she does not want patient to receive again if returns to [facility].
== END 2021-10-04 15:18 | disposition home or self-care (01) ==
PROVIDERS: Physician Assistant; Emergency Provider Emergency Medicine; PCP Registered Nurse
DX: S09.90XA Unspecified injury of head, initial encounter (principal); G44.309 Post-traumatic headache, unspecified, not intractable; F03.90 Unspecified dementia, unspecified severity, without behavioral disturbance, psychotic disturbance, mood disturbance, and anxiety; R06.02 Shortness of breath; W01.0XXA Fall on same level from slipping, tripping and stumbling without subsequent striking against object, initial encounter; Y93.9 Activity, unspecified; Y92.9 Unspecified place or not applicable; Y99.9 Unspecified external cause status; Z79.899 Other long term (current) drug therapy
CPT/HCPCS: 36415; 70450; 80053; 81001; 82550; 83735; 83880; 84484; 85025; 85610; 85730; 93005; 96361; 96372; 96374; 96376; 99284; 99285; J2060